=== PATIENT | female | born 1990 | race Caucasian/White ===

== ENCOUNTER 2020-08-22 12:19 | Emergency (ER) | payer MEDICAID ==
[~2020-08-22] VITALS: Ht 175.3 cm; Wt 75.0 kg
[~2020-08-22 12:19] MED LIST: CIPR-259 PO; CLON-527 PO; NABU-134 PO; ONDA8TAB6 PO; PHEN-716 PO
[2020-08-22 16:18] LABS: BASOPHILS # (AUTO) 0.1 X10'3 (0-0.2); BASOPHILS % (AUTO) 1.3 % (0-1); EOSINOPHILS # (AUTO) 0.2 X10'3 (0-0.9); EOSINOPHILS % (AUTO) 2.7 % (0-6); HEMATOCRIT 39.3 % (35.0-45.0); HEMOGLOBIN 13.1 g/dl (12.0-16.0); LYMPHOCYTES # (AUTO) 3.7 X10'3 (1.1-4.8); LYMPHOCYTES % (AUTO) 49.3 % (21-51); MEAN CORPUSCULAR HEMOGLOBIN 29.4 PG (27.0-31.0); MEAN CORPUSCULAR HGB CONC 33.3 g/dL (33.0-36.5); MEAN CORPUSCULAR VOLUME 88.3 FL (78-98); MEAN PLATELET VOLUME 6.3 FL (7.4-10.4); MONOCYTES # (AUTO) 0.5 X10'3 (0-0.9); NEUTROPHILS # (AUTO) 3.1 X10'3 (1.8-7.7); NEUTROPHILS % (AUTO) 40.7 % (42-75); PLATELET COUNT 441 X10'3 (140-440); RED BLOOD COUNT 4.45 X10'6 (4.20-5.60); RED CELL DISTRIBUTION WIDTH 15.1 % (11.5-14.5); WHITE BLOOD COUNT 7.6 X10'3 (4.5-11.0)
[2020-08-22 16:27] LABS: PARTIAL THROMBOPLASTIN TIME 26 SECONDS (22-32)
[2020-08-22 16:34] LABS: ALANINE AMINOTRANSFERASE 44 U/L (12-78); ALBUMIN 3.6 G/DL (3.4-5.0); ALBUMIN/GLOBULIN RATIO 0.8 (1.1-1.5); ALKALINE PHOSPHATASE 82 IU/L (46-116); ANION GAP 6 (8-16); ASPARTATE AMINO TRANSFERASE 27 U/L (10-37); BILIRUBIN,TOTAL 0.1 MG/DL (0.1-1.0); BLOOD UREA NITROGEN 13 MG/DL (7-18); BUN/CREATININE RATIO 17.6 (6.6-38.0); CALCIUM 8.8 MG/DL (8.5-10.1); CHLORIDE 103 MMOL/L (99-107); CREATININE 0.74 MG/DL (0.40-0.90); GLUCOSE 98 MG/DL (70-104); POTASSIUM 4.3 MMOL/L (3.5-5.1); SODIUM 137 MMOL/L (135-145); TOTAL CARBON DIOXIDE 27.6 MMOL/L (24-32); TOTAL PROTEIN 7.9 G/DL (6.4-8.2); eGFR > 90 ML/MIN
[2020-08-22 16:40] LABS: MAGNESIUM 2.2 MG/DL (1.5-2.4)
[2020-08-22 16:50] VITALS: BP 108/68
== END 2020-08-22 17:18 | disposition home or self-care (01) ==
LOC: ER 12:19
DX: R60.0 Localized edema (principal); R41.82 Altered mental status, unspecified; F10.10 Alcohol abuse, uncomplicated; J45.909 Unspecified asthma, uncomplicated; Z86.14 Personal history of Methicillin resistant Staphylococcus aureus infection; Z59.0 Homelessness; Z88.2 Allergy status to sulfonamides; Z88.8 Allergy status to other drugs, medicaments and biological substances; Z79.2 Long term (current) use of antibiotics; Z79.899 Other long term (current) drug therapy
CPT/HCPCS: 36415; 71045; 80053; 83735; 83880; 84484; 85025; 85610; 85730; 93005; 99285

== ENCOUNTER 2020-09-12 20:06 | Emergency (ER) | payer MEDICAID ==
[~2020-09-12] VITALS: Ht 175.3 cm; Wt 75.0 kg
[2020-09-12] MEDS ORDERED: normal saline 1000ml 1,000 ML IV ONE (21:20)
[2020-09-12 21:39] LABS: BASOPHILS # (AUTO) 0.1 X10'3 (0-0.2); BASOPHILS % (AUTO) 1.1 % (0-1); EOSINOPHILS # (AUTO) 0.1 X10'3 (0-0.9); MEAN PLATELET VOLUME 6.4 FL (7.4-10.4); RED BLOOD COUNT 4.75 X10'6 (4.20-5.60)
[2020-09-12 21:40] LABS: EOSINOPHILS % (AUTO) 1.1 % (0-6); HEMATOCRIT 40.4 % (35.0-45.0); HEMOGLOBIN 13.9 g/dl (12.0-16.0); LYMPHOCYTES # (AUTO) 5.8 X10'3 (1.1-4.8); LYMPHOCYTES % (AUTO) 58.8 % (21-51); MEAN CORPUSCULAR HEMOGLOBIN 29.3 PG (27.0-31.0); MEAN CORPUSCULAR HGB CONC 34.5 g/dL (33.0-36.5); MEAN CORPUSCULAR VOLUME 85.1 FL (78-98); MONOCYTES # (AUTO) 0.5 X10'3 (0-0.9); MONOCYTES % (AUTO) 5.2 % (2-12); NEUTROPHILS # (AUTO) 3.3 X10'3 (1.8-7.7); NEUTROPHILS % (AUTO) 33.8 % (42-75); PLATELET COUNT 375 X10'3 (140-440); RED CELL DISTRIBUTION WIDTH 14.5 % (11.5-14.5); WHITE BLOOD COUNT 9.8 X10'3 (4.5-11.0)
[2020-09-12 21:47] LABS: URINE HCG NEGATIVE (NEG)
[2020-09-12 21:50] LABS: D-DIMER 0.67 MG/L FEU (0-0.50)
[2020-09-12 21:53] LABS: ALANINE AMINOTRANSFERASE 42 U/L (12-78); ALBUMIN 4.1 G/DL (3.4-5.0); ALKALINE PHOSPHATASE 74 IU/L (46-116); ANION GAP 12 (8-16); ASPARTATE AMINO TRANSFERASE 39 U/L (10-37); BILIRUBIN,TOTAL 0.3 MG/DL (0.1-1.0); BLOOD UREA NITROGEN 9 MG/DL (7-18); BUN/CREATININE RATIO 12.2 (6.6-38.0); CALCIUM 8.9 MG/DL (8.5-10.1); CHLORIDE 103 MMOL/L (99-107); CREATININE 0.74 MG/DL (0.40-0.90); GLUCOSE 133 MG/DL (70-104); POTASSIUM 3.4 MMOL/L (3.5-5.1); SODIUM 141 MMOL/L (135-145); TOTAL CARBON DIOXIDE 26.5 MMOL/L (24-32); TOTAL PROTEIN 8.4 G/DL (6.4-8.2); eGFR > 90 ML/MIN
[2020-09-12 21:59] LABS: URINE AMPHETAMINE SCREEN NEGATIVE (Neg); URINE BARBITUATE SCREEN NEGATIVE (Neg); URINE BENZODIAZEPINES SCREEN NEGATIVE (Neg); URINE CANNABINOID SCREEN NEGATIVE (Neg); URINE COCAINE SCREEN NEGATIVE (Neg); URINE METHADONE SCREEN NEGATIVE (Neg); URINE OPIATE SCREEN NEGATIVE (Neg); URINE PHENCYCLIDINE SCREEN NEGATIVE (Neg)
[2020-09-12] MEDS ORDERED: iohexol 350MG/ML 100ml bottle IV ONE (22:06)
[2020-09-12] MEDS ORDERED: potassium Cl 20 mEq SR tablet PO ONE (22:20)
[2020-09-12 23:05] VITALS: BP 117/59
== END 2020-09-12 23:06 | disposition home or self-care (01) ==
LOC: ER 20:06
DX: R05 Cough (principal); R07.89 Other chest pain; R09.89 Other specified symptoms and signs involving the circulatory and respiratory systems; Z20.822 Contact with and (suspected) exposure to COVID-19; J45.909 Unspecified asthma, uncomplicated; Z86.14 Personal history of Methicillin resistant Staphylococcus aureus infection; Z59.0 Homelessness; Z88.2 Allergy status to sulfonamides; Z88.8 Allergy status to other drugs, medicaments and biological substances; Z79.2 Long term (current) use of antibiotics; Z79.899 Other long term (current) drug therapy
CPT/HCPCS: 36415; 71045; 71275; 80053; 80305; 81025; 85025; 85379; 87635; 93005; 96360; 99285; J7030; Q9967

== ENCOUNTER 2021-10-09 16:06 | Emergency (ER) | payer MEDICAID ==
[~2021-10-09] VITALS: Ht 177.8 cm; Wt 100.0 kg
[~2021-10-09 16:06] MED LIST changes: -NABU-134 PO; +NABU-139 PO
[2021-10-09 16:11] VITALS: BP 113/58
[2021-10-09] MEDS ORDERED: TETanus/Pertussis (Acell)/Diphther VAC/PF (Tdap-Adult) 0.5ml syringe IMVAC ONE (16:20)
== END 2021-10-09 16:40 ==
LOC: ER 16:06
DX: S81.811A Laceration without foreign body, right lower leg, initial encounter (principal); J45.909 Unspecified asthma, uncomplicated; Z86.14 Personal history of Methicillin resistant Staphylococcus aureus infection; Z59.00 Homelessness unspecified; Z88.2 Allergy status to sulfonamides; Z88.8 Allergy status to other drugs, medicaments and biological substances; Z79.2 Long term (current) use of antibiotics; Z79.899 Other long term (current) drug therapy; Z20.3 Contact with and (suspected) exposure to rabies; W45.8XXA Other foreign body or object entering through skin, initial encounter; Y93.89 Activity, other specified; Y92.89 Other specified places as the place of occurrence of the external cause; Y99.8 Other external cause status
CPT/HCPCS: 12002; 90471; 90715; 99283

== ENCOUNTER 2021-10-10 17:29 | Emergency (ER) | payer MEDICAID ==
[~2021-10-10] VITALS: Ht 175.3 cm; Wt 90.9 kg
[2021-10-10] MEDS ORDERED: naloxone 2mg/2ml inj IV STA (17:34)
[2021-10-10] MEDS ORDERED: normal saline 1000ML IV soln IVB ONE ×3 (17:40→19:20)
[2021-10-10 18:24] LABS: BASOPHILS # (AUTO) 0.1 X10'3 (0-0.2); BASOPHILS % (AUTO) 0.9 % (0-1); EOSINOPHILS % (AUTO) 0.4 % (0-6); HEMATOCRIT 35.2 % (35.0-45.0); LYMPHOCYTES # (AUTO) 3.5 X10'3 (1.1-4.8); LYMPHOCYTES % (AUTO) 42.6 % (21-51); MEAN CORPUSCULAR HEMOGLOBIN 28.5 PG (27.0-31.0); MEAN CORPUSCULAR HGB CONC 33.9 g/dL (33.0-36.5); MEAN CORPUSCULAR VOLUME 83.8 FL (78-98); MEAN PLATELET VOLUME 6.2 FL (7.4-10.4); MONOCYTES # (AUTO) 0.5 X10'3 (0-0.9); MONOCYTES % (AUTO) 5.9 % (2-12); NEUTROPHILS # (AUTO) 4.1 X10'3 (1.8-7.7); NEUTROPHILS % (AUTO) 50.2 % (42-75); PLATELET COUNT 453 X10'3 (140-440); RED CELL DISTRIBUTION WIDTH 14.3 % (11.5-14.5); WHITE BLOOD COUNT 8.3 X10'3 (4.5-11.0)
[2021-10-10 18:33] LABS: ALANINE AMINOTRANSFERASE 47 U/L (12-78); ALBUMIN 3.3 G/DL (3.4-5.0); ALBUMIN/GLOBULIN RATIO 0.8 (1.1-1.5); ALKALINE PHOSPHATASE 109 IU/L (46-116); ANION GAP 14 (8-16); ASPARTATE AMINO TRANSFERASE 54 U/L (10-37); BILIRUBIN,TOTAL 0.3 MG/DL (0.1-1.0); BLOOD UREA NITROGEN 9 MG/DL (7-18); BUN/CREATININE RATIO 10.8 (6.6-38.0); CALCIUM 8.3 MG/DL (8.5-10.1); CHLORIDE 106 MMOL/L (99-107); CREATININE 0.83 MG/DL (0.40-0.90); ETHANOL 0.067 GM/DL (0.0-0.010); GLUCOSE 93 MG/DL (70-104); POTASSIUM 3.7 MMOL/L (3.5-5.1); SODIUM 147 MMOL/L (135-145); TOTAL CARBON DIOXIDE 26.9 MMOL/L (24-32); TOTAL PROTEIN 7.4 G/DL (6.4-8.2); eGFR 79 ML/MIN
[2021-10-10] MEDS ORDERED: diphenhydrAMINE 50 mg/ml inj IV ONE (18:45)
--- NOTE | 2021-10-10 20:36 | NUR ---
PT IN BED RESTING COMFY, SUPINE. cHEST RISING AND FALLINF EYES CLOSED. PT ON DOOR CAPTAIN. NO ACUTE DISTRESS, WILL MONITOR THROUGHOUT.
[2021-10-10 21:55] LABS: URINE AMPHETAMINE SCREEN POSITIVE (Neg); URINE BARBITUATE SCREEN NEGATIVE (Neg); URINE BENZODIAZEPINES SCREEN NEGATIVE (Neg); URINE CANNABINOID SCREEN NEGATIVE (Neg); URINE COCAINE SCREEN NEGATIVE (Neg); URINE METHADONE SCREEN NEGATIVE (Neg); URINE OPIATE SCREEN NEGATIVE (Neg); URINE PHENCYCLIDINE SCREEN NEGATIVE (Neg)
--- NOTE | 2021-10-10 21:55 | NUR ---
pt arousable to voice. pt able to stand pivit and get onto bedside commode with little assist. pt unable to recall events leading to her coming to er.
[2021-10-10 21:58] LABS: CLARITY,URINE CLEAR (Clear); COLOR,URINE YELLOW (Yellow); GLUCOSE, URINE NEGATIVE (Neg); KETONES,URINE NEGATIVE (Neg); LEUKOCYTE ESTERASE ,URINE NEGATIVE (Neg); NITRITES, URINE NEGATIVE (Neg); OCCULT BLOOD,URINE NEGATIVE (Neg); PROTEIN,URINE NEGATIVE (Neg); UA COLLECTION TYPE VOIDED; UROBILINOGEN,URINE 0.2 E.U/dL (0.2-1.0)
--- NOTE | 2021-10-11 03:22 | NUR ---
pt observed sleeping, vss
--- NOTE | 2021-10-11 04:22 | NUR ---
pt [facility]; meal provided; a/o, vss, d/c instructions given, voiced understanding.
[2021-10-11 04:24] VITALS: BP 126/82
== END 2021-10-11 04:33 | disposition home or self-care (01) ==
LOC: ER 17:30
DX: T45.0X1A Poisoning by antiallergic and antiemetic drugs, accidental (unintentional), initial encounter (principal); T44.5X1A Poisoning by predominantly beta-adrenoreceptor agonists, accidental (unintentional), initial encounter; T36.0X1A Poisoning by penicillins, accidental (unintentional), initial encounter; R41.82 Altered mental status, unspecified; R25.3 Fasciculation; J45.909 Unspecified asthma, uncomplicated; S81.811D Laceration without foreign body, right lower leg, subsequent encounter; Z86.14 Personal history of Methicillin resistant Staphylococcus aureus infection; Z59.00 Homelessness unspecified; Z88.2 Allergy status to sulfonamides; Z88.8 Allergy status to other drugs, medicaments and biological substances; Z79.2 Long term (current) use of antibiotics; X58.XXXD Exposure to other specified factors, subsequent encounter; Y92.89 Other specified places as the place of occurrence of the external cause
CPT/HCPCS: 36415; 71045; 80053; 80305; 80320; 81003; 82140; 85025; 96361; 96374; 96375; 99285; J1200; J2310; J7030

== ENCOUNTER 2021-11-01 12:34 | Inpatient (IN) | payer MEDICAID ==
[~2021-11-01] VITALS: Ht 172.7 cm; Wt 100.0 kg
[2021-11-01] MEDS ORDERED: levetiracetam inj 1,000 MG in normal saline 100ml IV soln 90 ML IV STA (12:37)
[2021-11-01] MEDS ORDERED: LORazepam 2 mg/ml vial IV ONE (12:40)
[2021-11-01] MEDS ORDERED: normal saline 1000ML IV soln IVB ONE (12:40)
[2021-11-01] MEDS ORDERED: magnesium 2GM in 50ml NS 50 ML IV ONE (12:40)
[2021-11-01] MEDS ORDERED: famotidine/PF 10 mg/ml inj IV ONE (12:40)
[2021-11-01] MEDS ORDERED: ondansetron/PF 4mg/2ml inj IV ONE (12:40)
[2021-11-01] MEDS ORDERED: levetiracetam-NS 1000mg/100ml 100 ML IV STA (12:54)
[2021-11-01 13:20] LABS: BASOPHILS % (AUTO) 0.6 % (0-1); EOSINOPHILS # (AUTO) 0.1 X10'3 (0-0.9); EOSINOPHILS % (AUTO) 0.8 % (0-6); HEMATOCRIT 36.6 % (35.0-45.0); HEMOGLOBIN 11.8 g/dl (12.0-16.0); LYMPHOCYTES % (AUTO) 13.8 % (21-51); MEAN CORPUSCULAR HEMOGLOBIN 28.9 PG (27.0-31.0); MEAN CORPUSCULAR HGB CONC 32.3 g/dL (33.0-36.5); MEAN CORPUSCULAR VOLUME 89.5 FL (78-98); MEAN PLATELET VOLUME 6.3 FL (7.4-10.4); MONOCYTES # (AUTO) 0.3 X10'3 (0-0.9); MONOCYTES % (AUTO) 4.9 % (2-12); NEUTROPHILS # (AUTO) 5.6 X10'3 (1.8-7.7); NEUTROPHILS % (AUTO) 79.9 % (42-75); PLATELET COUNT 391 X10'3 (140-440); RED BLOOD COUNT 4.09 X10'6 (4.20-5.60); RED CELL DISTRIBUTION WIDTH 17.8 % (11.5-14.5)
[2021-11-01 13:33] LABS: AMMONIA < 10 UMOL/L (11-32)
[2021-11-01 13:34] LABS: ALANINE AMINOTRANSFERASE 57 U/L (12-78); ALBUMIN 3.1 G/DL (3.4-5.0); ALBUMIN/GLOBULIN RATIO 0.8 (1.1-1.5); ALKALINE PHOSPHATASE 85 IU/L (46-116); ANION GAP 14 (8-16); ASPARTATE AMINO TRANSFERASE 43 U/L (10-37); BILIRUBIN,TOTAL 0.1 MG/DL (0.1-1.0); BLOOD UREA NITROGEN 8 MG/DL (7-18); BUN/CREATININE RATIO 8.7 (6.6-38.0); CALCIUM 8.2 MG/DL (8.5-10.1); CHLORIDE 104 MMOL/L (99-107); CREATININE 0.92 MG/DL (0.40-0.90); ETHANOL 0.019 GM/DL (0.0-0.010); GLUCOSE 73 MG/DL (70-104); POTASSIUM 3.9 MMOL/L (3.5-5.1); SODIUM 139 MMOL/L (135-145); TOTAL CARBON DIOXIDE 20.6 MMOL/L (24-32); TOTAL PROTEIN 7.2 G/DL (6.4-8.2); eGFR 70 ML/MIN
[2021-11-01] MEDS ORDERED: acetaminophen 325mg tablet PO ONE (13:35)
[2021-11-01] MEDS ORDERED: thiamine 100mg/ml 2ml inj. IV ONE (13:40)
[2021-11-01] MEDS ORDERED: folic acid 1mg/0.2ml inj IV ONE (13:40)
[2021-11-01 13:47] LABS: LACTIC SEPSIS 4.5 MMOL/L (0.4-2.0)
[2021-11-01 14:04] LABS: CLARITY,URINE CLEAR (Clear); COLOR,URINE YELLOW (Yellow); GLUCOSE, URINE NEGATIVE (Neg); KETONES,URINE 40 mg/dl (Neg); LEUKOCYTE ESTERASE ,URINE NEGATIVE (Neg); NITRITES, URINE NEGATIVE (Neg); OCCULT BLOOD,URINE NEGATIVE (Neg); PROTEIN,URINE NEGATIVE (Neg); UROBILINOGEN,URINE 0.2 E.U/dL (0.2-1.0)
[2021-11-01 14:06] LABS: UA COLLECTION TYPE STRAIGHT CATH
--- NOTE | 2021-11-01 14:14 | NUR ---
SC DONE FOR URINE
--- NOTE | 2021-11-01 14:14 | NUR ---
PT BECOMING MORE ALERT BUT STILL NOT RESPONDING TO QUESTIONS SHE WILL WAKE OPEN HER EYES LOOK AROUND AND FIGHT AGINAST CARE BUT THEN FALLS BACK ASLEEP
[2021-11-01 14:16] LABS: CREATINE KINASE 202 U/L (26-192)
[2021-11-01 14:17] LABS: URINE AMPHETAMINE SCREEN POSITIVE (Neg); URINE BARBITUATE SCREEN NEGATIVE (Neg); URINE BENZODIAZEPINES SCREEN NEGATIVE (Neg); URINE CANNABINOID SCREEN NEGATIVE (Neg); URINE COCAINE SCREEN NEGATIVE (Neg); URINE METHADONE SCREEN NEGATIVE (Neg); URINE OPIATE SCREEN NEGATIVE (Neg); URINE PHENCYCLIDINE SCREEN NEGATIVE (Neg)
[2021-11-01] MEDS ORDERED: haloperidol 5mg tablet PO PRN (14:20)
[2021-11-01] MEDS ORDERED: magnesium 4gm in 100ml NS 100 ML IV PRN (14:20)
[2021-11-01] MEDS ORDERED: magnesium 2GM in 50ml NS 50 ML IV PRN (14:20)
[2021-11-01] MEDS ORDERED: magnesium Cl slow-release 64mg tablet PO PRN (14:20)
[2021-11-01] MEDS: normal saline 1000ml 1,000 ML IV SCH (14:20)
[2021-11-01] MEDS ORDERED: bisacodyl 10mg suppository rectal RC PRN (14:20)
[2021-11-01] MEDS ORDERED: potassium CL 10mEq/100ml bag 100 ML IV PRN (14:20)
[2021-11-01] MEDS ORDERED: potassium Cl 20 mEq SR tablet PO PRN ×2 (14:20)
[2021-11-01] MEDS ORDERED: mag hydrox/Alum hydrox/simeth 30ml oral suspension PO PRN (14:20)
[2021-11-01] MEDS ORDERED: magnesium hydroxide 30ml (MOM) UD suspension PO PRN (14:20)
[2021-11-01] MEDS ORDERED: LORazepam 2 mg/ml vial IV PRN ×2 (14:20)
[2021-11-01] MEDS ORDERED: naloxone 0.4 mg/ml inj IV PRN (14:20)
[2021-11-01] MEDS ORDERED: ondansetron 4mg rapidly disintigrating tab PO PRN (14:20)
[2021-11-01] MEDS ORDERED: ondansetron/PF 4mg/2ml inj IV PRN (14:20)
[2021-11-01] MEDS ORDERED: acetaminophen 325mg tablet PO PRN (14:20)
[2021-11-01] MEDS ORDERED: metoclopramide 5 mg/ml inj IV PRN (14:20)
[2021-11-01] MEDS ORDERED: LORazepam 1 MG tablet PO PRN (14:20)
[2021-11-01] MEDS ORDERED: acetaminophen 650mg rectal suppository RC PRN (14:20)
[2021-11-01] MEDS ORDERED: haloperidol lactate 5mg/ml inj IM PRN (14:20)
[2021-11-01 14:39] LABS: URINE HCG NEGATIVE (NEG)
[2021-11-01 15:03] LABS: MAGNESIUM 1.9 MG/DL (1.5-2.4)
--- NOTE | 2021-11-01 15:11 | NUR ---
woke pt up and was able to tell me her name but then fell back to sleep
[2021-11-01] MEDS ORDERED: CLON-369 PO (16:15)
[2021-11-01] MEDS ORDERED: CHOL500050 PO (16:15)
[2021-11-01] MEDS ORDERED: GABA600T13 PO (16:15)
[2021-11-01] MEDS ORDERED: ESCI20TA39 PO (16:15)
[2021-11-01] MEDS ORDERED: HYDR50TA65 PO (16:15)
[2021-11-01] MEDS ORDERED: hydrOXYzine 25 MG tablet PO PRN (16:25)
[2021-11-01] MEDS: gabapentin 300mg capsule PO SCH ×2 (17:00→21:47)
--- NOTE | 2021-11-01 17:21 | NUR ---
pt still sleepy but more alert was she is still not sure what happened but thinks she fell and knows she is in the hostpital after answering questions she laid back and went back to sleep
[2021-11-01] MEDS: K and/or MAG REPLACEMENT MC SCH (20:00)
[2021-11-01] MEDS: levetiracetam-NS 1000mg/100ml 100 ML IV SCH (20:16)
--- NOTE | 2021-11-01 21:20 | NUR ---
Pt arrived from ED at this time. Pt is lethargic and responds to verbal commands. Has bilateral redness on both arms, pt states occurred from bad meth reaction. Keppra is being infused at this time. Seizures precaution is in place. Vitals are stable and within normal range with no temperature. Will continue to monitor patient.
[2021-11-01] MEDS: acetaminophen 325mg tablet PO PRN (21:47)
[2021-11-01] MEDS: docusate sod 100mg capsule PO SCH (21:47)
[2021-11-01 22:00] VITALS: BP 121/66
[2021-11-01] MEDS: thiamine 100mg/ml 2ml inj. IV SCH (23:04)
--- NOTE | 2021-11-02 | NUR ---
Upon arrival pts BS was 60, gave pt three cups of orange juice and jello. Rechecked after 15 mins BS increased to 122. Will continue to monitor.
[2021-11-02] MEDS: normal saline 1000ml 1,000 ML IV SCH ×3 (00:22→21:59)
[2021-11-02 02:00] VITALS: BP 102/44
[2021-11-02] MEDS: acetaminophen 325mg tablet PO PRN (05:44)
[2021-11-02 06:00] VITALS: BP 90/48
[2021-11-02] MEDS: multivitamins, therapeutics tablet PO SCH (08:00)
[2021-11-02] MEDS: K and/or MAG REPLACEMENT MC SCH ×2 (08:00→20:00)
[2021-11-02] MEDS: ESCITALOPRAM OXALATE 5 MG TABLET PO SCH (08:00)
[2021-11-02] MEDS: docusate sod 100mg capsule PO SCH ×2 (08:00→21:24)
[2021-11-02] MEDS: gabapentin 300mg capsule PO SCH ×4 (08:00→21:25)
[2021-11-02 08:36] LABS: ALANINE AMINOTRANSFERASE 41 U/L (12-78); ALBUMIN 2.5 G/DL (3.4-5.0); ALBUMIN/GLOBULIN RATIO 0.7 (1.1-1.5); ALKALINE PHOSPHATASE 71 IU/L (46-116); ANION GAP 10 (8-16); ASPARTATE AMINO TRANSFERASE 36 U/L (10-37); BILIRUBIN,TOTAL 0.2 MG/DL (0.1-1.0); BLOOD UREA NITROGEN 8 MG/DL (7-18); BUN/CREATININE RATIO 12.1 (6.6-38.0); CALCIUM 7.9 MG/DL (8.5-10.1); CHLORIDE 104 MMOL/L (99-107); CREATININE 0.66 MG/DL (0.40-0.90); GLUCOSE 78 MG/DL (70-104); POTASSIUM 3.7 MMOL/L (3.5-5.1); SODIUM 138 MMOL/L (135-145); TOTAL CARBON DIOXIDE 23.8 MMOL/L (24-32); TOTAL PROTEIN 6.1 G/DL (6.4-8.2); eGFR > 90 ML/MIN
[2021-11-02] MEDS: levetiracetam-NS 1000mg/100ml 100 ML IV SCH ×2 (08:40→21:27)
[2021-11-02] MEDS: thiamine 100mg/ml 2ml inj. IV SCH ×3 (08:40→21:27)
[2021-11-02] MEDS: folic acid 1mg/0.2ml inj IV SCH (08:41)
[2021-11-02 08:48] LABS: MAGNESIUM 2.1 MG/DL (1.5-2.4)
[2021-11-02 08:49] LABS: BASOPHILS % (AUTO) 0.8 % (0-1); EOSINOPHILS # (AUTO) 0.1 X10'3 (0-0.9); EOSINOPHILS % (AUTO) 2.4 % (0-6); HEMATOCRIT 34.1 % (35.0-45.0); HEMOGLOBIN 11.2 g/dl (12.0-16.0); LYMPHOCYTES # (AUTO) 2.7 X10'3 (1.1-4.8); LYMPHOCYTES % (AUTO) 42.6 % (21-51); MEAN CORPUSCULAR HEMOGLOBIN 29.9 PG (27.0-31.0); MEAN CORPUSCULAR HGB CONC 32.9 g/dL (33.0-36.5); MEAN CORPUSCULAR VOLUME 90.7 FL (78-98); MEAN PLATELET VOLUME 6.9 FL (7.4-10.4); MONOCYTES # (AUTO) 0.6 X10'3 (0-0.9); MONOCYTES % (AUTO) 9.1 % (2-12); NEUTROPHILS # (AUTO) 2.8 X10'3 (1.8-7.7); NEUTROPHILS % (AUTO) 45.1 % (42-75); PLATELET COUNT 372 X10'3 (140-440); RED BLOOD COUNT 3.76 X10'6 (4.20-5.60); RED CELL DISTRIBUTION WIDTH 17.9 % (11.5-14.5); WHITE BLOOD COUNT 6.3 X10'3 (4.5-11.0)
--- NOTE | 2021-11-02 10:12 | NUR ---
Paged EEG PCU Patrice MCKEON ext [phone] RE: Lucia Tejeda. Patient needs EEG please, she had seizure upon arrival to ER
--- NOTE | 2021-11-02 10:12 | NUR ---
Patient has been lethargic today, will wake up when shaking repeatedly and in pain. When she awake, she will talk to me then fall asleep. She has very short attention span. Last dose of Ativan was last night. MRI of the head and EEG pending at this time. MRI screening form was faxed to MRI department, I told Juno from MRI patient has earrings and a ring on her finger. Per Juno, we need the earring taken out and that we can leave the ring on as the MRI is for the head. Tamara, the NC MACHINIST removed the earrings as per my instruction. Dr. Cm was notified that patient has been lethargic today. supply technician paged also.
[2021-11-02 11:00] VITALS: BP 106/65
[2021-11-02] MEDS: clonazePAM 0.5mg tablet PO PRN ×2 (13:57→21:31)
[2021-11-02 15:00] VITALS: BP 93/49
[2021-11-02 18:30] VITALS: BP 124/76
--- NOTE | 2021-11-02 18:45 | NUR ---
Patient in room U 3013. I have received report from MIKE Ibrahim and had the opportunity to ask questions and assume patient care. Seizure pads on bed. No complaints. Addendum: 11/02/21 at 1846 by Manuel Raphael RN Amended: Links added.
[2021-11-02] MEDS: buprenorphine/naloxone 8MG-2MG SUBlingual film SL SCH (21:24)
[2021-11-02 22:30] VITALS: BP 128/82
[2021-11-03] VITALS (7 sets, daily range): BP systolic 109–124; BP diastolic 51–77
--- NOTE | 2021-11-03 00:01 | NUR ---
resting with eyes closed rr wnl. no s&s of withdrawls or seizures. Addendum: 11/03/21 at 0002 by Manuel Raphael RN Amended: Links added.
--- NOTE | 2021-11-03 03:00 | NUR ---
AMB TO BATHROOM VOIDED MISSED HAT. PT DECLINES BATH OR SHOWER RIGHT NOW, SHOWER SET UP OFR PT WHEN READY. PT FALLS ASLEEP WHEN BACK TO BED, REQ JELLO AND SNACK. NO S7S WITHDRAWL AT THIS TIME. Addendum: 11/03/21 at 0358 by Manuel Raphael RN Amended: Links added.
[2021-11-03] MEDS: normal saline 1000ml 1,000 ML IV SCH ×2 (05:18→08:57)
--- NOTE | 2021-11-03 06:33 | NUR ---
Problems reprioritized. Patient report given, questions answered & plan of care reviewed with MIKE LIU. Addendum: 11/03/21 at 0634 by Manuel Raphael RN Amended: Links added.
--- NOTE | 2021-11-03 06:55 | NUR ---
Patient in room PCU 3013. I have received report from Idalia MCKEON and had the opportunity to ask questions and assume patient care.
[2021-11-03 07:26] LABS: BASOPHILS % (AUTO) 0.2 % (0-1); EOSINOPHILS # (AUTO) 0.2 X10'3 (0-0.9); EOSINOPHILS % (AUTO) 3.1 % (0-6); HEMATOCRIT 35.4 % (35.0-45.0); HEMOGLOBIN 11.6 g/dl (12.0-16.0); LYMPHOCYTES # (AUTO) 2.8 X10'3 (1.1-4.8); LYMPHOCYTES % (AUTO) 52.2 % (21-51); MEAN CORPUSCULAR HEMOGLOBIN 29.4 PG (27.0-31.0); MEAN CORPUSCULAR HGB CONC 32.6 g/dL (33.0-36.5); MEAN CORPUSCULAR VOLUME 90.1 FL (78-98); MEAN PLATELET VOLUME 7.1 FL (7.4-10.4); MONOCYTES # (AUTO) 0.4 X10'3 (0-0.9); MONOCYTES % (AUTO) 7.8 % (2-12); NEUTROPHILS % (AUTO) 36.7 % (42-75); PLATELET COUNT 358 X10'3 (140-440); RED BLOOD COUNT 3.93 X10'6 (4.20-5.60); RED CELL DISTRIBUTION WIDTH 17.5 % (11.5-14.5); WHITE BLOOD COUNT 5.4 X10'3 (4.5-11.0)
[2021-11-03] MEDS: docusate sod 100mg capsule PO SCH ×2 (07:41→20:53)
[2021-11-03] MEDS: gabapentin 300mg capsule PO SCH ×4 (07:41→20:53)
[2021-11-03] MEDS: multivitamins, therapeutics tablet PO SCH (07:41)
[2021-11-03 07:42] LABS: ALANINE AMINOTRANSFERASE 36 U/L (12-78); ALBUMIN 2.5 G/DL (3.4-5.0); ALBUMIN/GLOBULIN RATIO 0.7 (1.1-1.5); ALKALINE PHOSPHATASE 73 IU/L (46-116); ANION GAP 4 (8-16); ASPARTATE AMINO TRANSFERASE 25 U/L (10-37); BILIRUBIN,TOTAL 0.1 MG/DL (0.1-1.0); BLOOD UREA NITROGEN 7 MG/DL (7-18); BUN/CREATININE RATIO 10.1 (6.6-38.0); CHLORIDE 110 MMOL/L (99-107); CREATININE 0.69 MG/DL (0.40-0.90); GLUCOSE 103 MG/DL (70-104); MAGNESIUM 1.9 MG/DL (1.5-2.4); SODIUM 139 MMOL/L (135-145); TOTAL CARBON DIOXIDE 24.9 MMOL/L (24-32); TOTAL PROTEIN 6.3 G/DL (6.4-8.2); eGFR > 90 ML/MIN
[2021-11-03] MEDS: ESCITALOPRAM OXALATE 5 MG TABLET PO SCH (07:43)
[2021-11-03] MEDS: thiamine 100mg/ml 2ml inj. IV SCH ×3 (07:43→20:53)
[2021-11-03] MEDS: folic acid 1mg/0.2ml inj IV SCH (07:44)
[2021-11-03] MEDS: levetiracetam-NS 1000mg/100ml 100 ML IV SCH ×2 (07:44→20:53)
[2021-11-03] MEDS: buprenorphine/naloxone 8MG-2MG SUBlingual film SL SCH ×3 (07:49→20:53)
[2021-11-03] MEDS: K and/or MAG REPLACEMENT MC SCH ×2 (08:00→20:00)
[2021-11-03] MEDS: clonazePAM 0.5mg tablet PO PRN ×2 (08:57→21:06)
[2021-11-03] MEDS ORDERED: KEP500T PO (09:57)
[2021-11-03] MEDS ORDERED: BUPR1FIL3 SL (09:57)
--- NOTE | 2021-11-03 12:54 | NUR ---
Met with patient in regards to substance use and to see if patient wanted resources for treatment options. Patient would like to go to an inpatient rehab. Patient and I are going to call [facility] and get that process started. Also gave patient my card to call me with any questions.
[2021-11-03 13:17] LABS: ANISOCYTOSIS 1+; PLATELET ESTIMATE NORMAL; TOTAL CELLS COUNTED 100
--- NOTE | 2021-11-03 14:01 | NUR ---
PAGER ID: [phone] MESSAGE: Gerardo [facility] [phone] Re: Riya Tejeda Substance abuse counseling suggested staying till Tomorrow so patient can go to [facility] tomorrow so she stays clean for intake?
--- NOTE | 2021-11-03 18:35 | NUR ---
Problems reprioritized. Patient report given, questions answered & plan of care reviewed with Iwona MCKEON.
--- NOTE | 2021-11-03 18:35 | NUR ---
Patient in room PCU 3013. I have received report from Gerardo MCKEON and had the opportunity to ask questions and assume patient care.
[2021-11-04] VITALS: BP 112/77
[2021-11-04] MEDS: normal saline 1000ml 1,000 ML IV SCH ×2 (00:07→12:20)
[2021-11-04 02:00] VITALS: BP 103/74
[2021-11-04 06:29] LABS: BASOPHILS % (AUTO) 0.8 % (0-1); EOSINOPHILS # (AUTO) 0.1 X10'3 (0-0.9); HEMATOCRIT 34.2 % (35.0-45.0); HEMOGLOBIN 11.3 g/dl (12.0-16.0); LYMPHOCYTES # (AUTO) 2.8 X10'3 (1.1-4.8); LYMPHOCYTES % (AUTO) 57.1 % (21-51); MEAN CORPUSCULAR HGB CONC 33.1 g/dL (33.0-36.5); MEAN CORPUSCULAR VOLUME 90.8 FL (78-98); MEAN PLATELET VOLUME 7.1 FL (7.4-10.4); MONOCYTES # (AUTO) 0.4 X10'3 (0-0.9); MONOCYTES % (AUTO) 7.8 % (2-12); NEUTROPHILS # (AUTO) 1.6 X10'3 (1.8-7.7); NEUTROPHILS % (AUTO) 31.3 % (42-75); PLATELET COUNT 388 X10'3 (140-440); RED BLOOD COUNT 3.77 X10'6 (4.20-5.60); RED CELL DISTRIBUTION WIDTH 17.7 % (11.5-14.5)
[2021-11-04 06:34] LABS: ALANINE AMINOTRANSFERASE 37 U/L (12-78); ALBUMIN 2.5 G/DL (3.4-5.0); ALBUMIN/GLOBULIN RATIO 0.7 (1.1-1.5); ALKALINE PHOSPHATASE 66 IU/L (46-116); ANION GAP 6 (8-16); ASPARTATE AMINO TRANSFERASE 30 U/L (10-37); BILIRUBIN,TOTAL 0.1 MG/DL (0.1-1.0); BLOOD UREA NITROGEN 7 MG/DL (7-18); BUN/CREATININE RATIO 9.1 (6.6-38.0); CHLORIDE 111 MMOL/L (99-107); CREATININE 0.77 MG/DL (0.40-0.90); GLUCOSE 100 MG/DL (70-104); MAGNESIUM 1.8 MG/DL (1.5-2.4); POTASSIUM 4.4 MMOL/L (3.5-5.1); SODIUM 143 MMOL/L (135-145); TOTAL CARBON DIOXIDE 26.5 MMOL/L (24-32); TOTAL PROTEIN 6.1 G/DL (6.4-8.2); eGFR 86 ML/MIN
--- NOTE | 2021-11-04 06:40 | NUR ---
Problems reprioritized. Patient report given, questions answered & plan of care reviewed with Debbie MCKEON.
[2021-11-04 07:37] LABS: ANISOCYTOSIS 1+; PLATELET ESTIMATE NORMAL; TOTAL CELLS COUNTED 100
[2021-11-04] MEDS: clonazePAM 0.5mg tablet PO PRN (07:40)
[2021-11-04] MEDS: ESCITALOPRAM OXALATE 5 MG TABLET PO SCH (07:41)
[2021-11-04] MEDS: folic acid 1mg/0.2ml inj IV SCH (07:41)
[2021-11-04] MEDS: thiamine 100mg/ml 2ml inj. IV SCH (07:41)
[2021-11-04] MEDS: multivitamins, therapeutics tablet PO SCH (07:41)
[2021-11-04] MEDS: docusate sod 100mg capsule PO SCH (07:41)
[2021-11-04] MEDS: gabapentin 300mg capsule PO SCH (07:41)
[2021-11-04] MEDS: buprenorphine/naloxone 8MG-2MG SUBlingual film SL SCH (07:41)
[2021-11-04] MEDS: levetiracetam-NS 1000mg/100ml 100 ML IV SCH (07:42)
[2021-11-04 07:52] VITALS: BP 129/79
[2021-11-04] MEDS: K and/or MAG REPLACEMENT MC SCH (08:00)
--- NOTE | 2021-11-04 09:55 | NUR ---
Followed up with patient to confirm when she is able to go to [facility] and she is accepted for WednesdayNovember 07. Patient called [facility] and they will pick her up at [facility] Wednesday at 8:00am to drive her there.
[2021-11-04 11:00] VITALS: BP 112/68
--- NOTE | 2021-11-04 11:22 | NUR ---
Attempted to call in patient's discharge prescription for suboxone over at [facility] on [address] Pharmacy was not able to fill prescription and says Dr. Schmidt over on [facility] orders weekly prescription for suboxone for patient and it would be best to have him write patients new prescription. Dr. Bajwa and casework specialist are aware and I am told we are not able to do anything from our standpoint. Patient was given multiple bus passes to get to Dr. Elliott's office if she needs to and also to get to the pharmacy and back to [facility]. She is aware [facility] will not be able to take her until Wednesday.
--- NOTE | 2021-11-04 12:29 | NUR ---
Discharge paperwork reviewed with patient. I informed her that she will need to get suboxone prescription from her doctor, Dr Tello. Both IVs were removed, catheter tips intact. Patient is requesting to stay until she is done eating her lunch. Free from injuries.
[2021-11-06] MEDS ORDERED: thiamine 100mg tablet PO SCH (08:00)
[2021-11-06] MEDS ORDERED: folic acid 1mg tablet PO SCH (08:00)
== END 2021-11-04 13:20 | disposition home or self-care (01) | DRG 53 ==
LOC: ER 12:34 → ED HOLD 14:28 → PCU 3S 20:30
PROVIDERS: ADMIT Family Medicine; ATTEND Family Medicine
PROC: 4A10X4Z Monitoring of Central Nervous Electrical Activity, External Approach (ICD-10-PCS; principal; 2021-11-02)
DX: G40.909 Epilepsy, unspecified, not intractable, without status epilepticus (principal); E87.2 Acidosis; N17.9 Acute kidney failure, unspecified; M62.82 Rhabdomyolysis; F15.10 Other stimulant abuse, uncomplicated; F10.129 Alcohol abuse with intoxication, unspecified; W18.39XA Other fall on same level, initial encounter; F41.0 Panic disorder [episodic paroxysmal anxiety]; H73.891 Other specified disorders of tympanic membrane, right ear; J45.909 Unspecified asthma, uncomplicated; S00.03XA Contusion of scalp, initial encounter; F32.A Depression, unspecified; Z59.00 Homelessness unspecified; Z88.2 Allergy status to sulfonamides; Z88.8 Allergy status to other drugs, medicaments and biological substances; Z79.899 Other long term (current) drug therapy; Y93.89 Activity, other specified; Y92.89 Other specified places as the place of occurrence of the external cause; Y99.8 Other external cause status
CPT/HCPCS: 36415; 70450; 70553; 71045; 80053; 80305; 80320; 81003; 81025; 82140; 82550; 82948; 83605; 83735; 85007; 85025; 87040; 87081; 93005; 95816; 96365; 96368; 96376; 97116; 97161; 97530; 99291; G0378; J1953; J2060; J2405; J3411; J3475; J3490; J7030

== ENCOUNTER 2021-12-13 12:54 | Emergency (ER) | payer MEDICAID ==
[~2021-12-13] VITALS: Ht 175.3 cm; Wt 82.4 kg
[~2021-12-13 12:54] MED LIST changes: +BUPR1FIL3 SL; +CHOL500050 PO; -CIPR-259 PO; +CLON-369 PO; -CLON-527 PO; +ESCI20TA39 PO; +GABA600T13 PO; +HYDR50TA65 PO; +KEP500T PO; -NABU-139 PO; -ONDA8TAB6 PO; -PHEN-716 PO
[2021-12-13 15:18] VITALS: BP 163/93
[2021-12-13] MEDS ORDERED: PENICILLIN G BENZATHINE 2,400,000 UNIT/4 ML SYRINGE IM ONE (15:40)
[2021-12-13] MEDS ORDERED: CefTRIAXone 500MG IM Kit w/LIDOcaine IM ONE (15:40)
[2021-12-13] MEDS ORDERED: DOXY100C77 PO (16:11)
[2021-12-13] MEDS ORDERED: ACYC-129 PO (16:11)
[2021-12-13] MEDS ORDERED: DOXYCYCLINE 100MG CAPSULE PO SCH (17:30)
== END 2021-12-13 16:29 | disposition home or self-care (01) ==
LOC: ER 12:55
DX: Z20.2 Contact with and (suspected) exposure to infections with a predominantly sexual mode of transmission (principal); R30.9 Painful micturition, unspecified; N89.8 Other specified noninflammatory disorders of vagina; J45.909 Unspecified asthma, uncomplicated; Z86.14 Personal history of Methicillin resistant Staphylococcus aureus infection; Z59.00 Homelessness unspecified; Z88.2 Allergy status to sulfonamides; Z88.8 Allergy status to other drugs, medicaments and biological substances; Z79.2 Long term (current) use of antibiotics; Z79.899 Other long term (current) drug therapy
CPT/HCPCS: 36415; 86592; 96372; 99284; J0561; J0696

== ENCOUNTER 2021-12-27 04:48 | Emergency (ER) | payer MEDICAID ==
[~2021-12-27] VITALS: Ht 175.3 cm; Wt 78.3 kg
[2021-12-27 05:23] VITALS: BP 162/109
== END 2021-12-27 09:51 | disposition left against medical advice (07) ==
LOC: ER 04:49
DX: A49.02 Methicillin resistant Staphylococcus aureus infection, unspecified site (principal); Z53.21 Procedure and treatment not carried out due to patient leaving prior to being seen by health care provider

== ENCOUNTER 2022-02-22 08:19 | Emergency (ER) | payer MEDICAID ==
[~2022-02-22] VITALS: Ht 177.8 cm; Wt 80.0 kg
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
[2022-02-22 08:29] VITALS: BP 129/82
--- NOTE | 2022-02-22 09:04 | NUR ---
patient eloped at this time. states "you guys arent even doing anything for me and i still havent been changed". states she wanted to leave and be reunited with "letty" who was her friend of three days. she was upset we could not let him back because he could not provide patient name for verification. patient refused to sign AMA forms, states "she will make our jobs easier by leaving and will probably see us again when she accidentally overdoses again". ER MD warren, orquidea left department
== END 2022-02-22 09:08 | disposition left against medical advice (07) ==
LOC: ER 08:19
DX: T50.901A Poisoning by unspecified drugs, medicaments and biological substances, accidental (unintentional), initial encounter (principal); Z53.21 Procedure and treatment not carried out due to patient leaving prior to being seen by health care provider

== ENCOUNTER 2022-06-22 20:31 | Emergency (ER) | payer MEDICAID ==
[~2022-06-22] VITALS: Ht 154.9 cm; Wt 61.0 kg
[2022-06-22 21:46] VITALS: BP 126/84
== END 2022-06-22 21:31 | disposition home or self-care (01) ==
LOC: ER 20:31
DX: F10.129 Alcohol abuse with intoxication, unspecified (principal); F19.10 Other psychoactive substance abuse, uncomplicated; R42 Dizziness and giddiness; J45.909 Unspecified asthma, uncomplicated; Z86.14 Personal history of Methicillin resistant Staphylococcus aureus infection; Z59.00 Homelessness unspecified; Z88.2 Allergy status to sulfonamides; Z88.8 Allergy status to other drugs, medicaments and biological substances; Z79.899 Other long term (current) drug therapy; Y90.9 Presence of alcohol in blood, level not specified
CPT/HCPCS: 99283

== ENCOUNTER 2024-05-09 17:03 | Emergency (ER) | payer MEDICAID ==
[~2024-05-09] VITALS: Ht 170.2 cm; Wt 76.8 kg
[2024-05-09 18:03] VITALS: BP 97/61; PULSE 86; RESP 18; TEMP 97.8; O2SAT 97
== END 2024-05-09 19:16 | disposition left against medical advice (07) ==
LOC: ER 17:03
DX: F14.129 Cocaine abuse with intoxication, unspecified (principal); Z53.21 Procedure and treatment not carried out due to patient leaving prior to being seen by health care provider

== ENCOUNTER 2024-05-10 07:35 | Emergency (ER) | payer MEDICAID ==
[~2024-05-10] VITALS: Ht 177.8 cm; Wt 79.1 kg
[2024-05-10 07:41] VITALS: BP 138/50; PULSE 61; RESP 18; TEMP 98; O2SAT 99
== END 2024-05-10 09:05 | disposition home or self-care (01) ==
LOC: ER 07:36
DX: F19.20 Other psychoactive substance dependence, uncomplicated (principal); F11.20 Opioid dependence, uncomplicated; R06.02 Shortness of breath; M79.89 Other specified soft tissue disorders; J45.909 Unspecified asthma, uncomplicated; F17.200 Nicotine dependence, unspecified, uncomplicated; Z88.2 Allergy status to sulfonamides; Z88.8 Allergy status to other drugs, medicaments and biological substances; Z79.899 Other long term (current) drug therapy; Z59.00 Homelessness unspecified
CPT/HCPCS: 71045; 99283

== ENCOUNTER 2024-11-23 02:38 | Inpatient (IN) | payer MEDICAID ==
[~2024-11-23] VITALS: Ht 175.3 cm; Wt 78.9 kg
[~2024-11-23 02:38] MED LIST changes: +GABA-1405 PO; -GABA600T13 PO
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
[2024-11-23] MEDS ORDERED: tranexamic acid inj. 1,000 MG in normal saline 100ml IV soln 90 ML IV ONE (02:55)
[2024-11-23] MEDS: tranexamic acid 1gm/0.7% sal. 100 ML IV ONE (03:01)
[2024-11-23 03:13] LABS: BASOPHILS # (AUTO) 0.2 X10'3 (0-0.2); BASOPHILS % (AUTO) 1.2 % (0-1); EOSINOPHILS # (AUTO) 0.1 X10'3 (0-0.9); EOSINOPHILS % (AUTO) 0.8 % (0-6); HEMATOCRIT 37.8 % (35.0-45.0); HEMOGLOBIN 12.6 g/dl (12.0-16.0); LYMPHOCYTES # (AUTO) 5.6 X10'3 (1.1-4.8); LYMPHOCYTES % (AUTO) 43.4 % (21-51); MEAN CORPUSCULAR HEMOGLOBIN 29.7 PG (27.0-31.0); MEAN CORPUSCULAR HGB CONC 33.4 g/dL (33.0-36.5); MEAN CORPUSCULAR VOLUME 88.9 FL (78-98); MEAN PLATELET VOLUME 7.1 FL (7.4-10.4); MONOCYTES # (AUTO) 0.6 X10'3 (0-0.9); MONOCYTES % (AUTO) 4.9 % (2-12); NEUTROPHILS # (AUTO) 6.4 X10'3 (1.8-7.7); NEUTROPHILS % (AUTO) 49.7 % (42-75); PLATELET COUNT 357 X10'3 (140-440); RED BLOOD COUNT 4.25 X10'6 (4.20-5.60); WHITE BLOOD COUNT 12.9 X10'3 (4.5-11.0)
[2024-11-23] MEDS: ondansetron/PF 4mg/2ml inj IV ONE (03:16)
[2024-11-23] MEDS: HYDROmorphone 1 mg/ml syringe IV ONE ×2 (03:17→03:32)
[2024-11-23] MEDS: normal saline 1000ml 1,000 ML IV ONE ×2 (03:17→05:50)
[2024-11-23 03:19] LABS: ALBUMIN 3.8 G/DL (3.4-5.0); ANION GAP 9 (8-16); BLOOD UREA NITROGEN 12 MG/DL (7-18); BUN/CREATININE RATIO 12.8 (10.0-20.0); CALCIUM 8.9 MG/DL (8.5-10.1); CHLORIDE 112 MMOL/L (99-107); CREATININE 0.94 MG/DL (0.40-0.90); ETHANOL 196 MG/DL (<10); GLUCOSE 94 MG/DL (70-104); MAGNESIUM 1.9 MG/DL (1.5-2.4); POTASSIUM 3.8 MMOL/L (3.5-5.1); SODIUM 146 MMOL/L (135-145); TOTAL CARBON DIOXIDE 24.7 MMOL/L (24-32); eGFR 67 ML/MIN
[2024-11-23 03:22] LABS: APTT 25 SECONDS (22-32); PROTHROMBIN TIME 10.2 SECONDS (9.0-12.0)
[2024-11-23] MEDS: LIDOcaine 1% W/epiNEPHrine 1:100,000 20ml vial SQ ONE (03:34)
[2024-11-23] MEDS ORDERED: iohexol 350MG/ML 100ml bottle IV ONE (03:43)
--- NOTE | 2024-11-23 04:31 | RADIOLOGY REPORT ---
DI ELBOW,LIMITED (AP/LAT), INDICATION: arm lac LEFT TECHNICAL DATA: Frontal, oblique and lateral views were obtained of the left elbow. COMPARISON: None IMPRESSION: No acute fracture or dislocation. Bandage material present at the elbow.
--- NOTE | 2024-11-23 04:56 | PROGRESS NOTE ---
Progress Note ID Providers to CC ~ Progress Note Progress Note: pt seen and examined-now with palpable radial/ulnar pulses-needs exploration in or-discussed procedure including risks/benefits/alternatives DEMETRIUS ORDONEZ MD November 23, 2024 04:56
--- NOTE | 2024-11-23 05:07 | RADIOLOGY REPORT ---
Procedure: CT CTA UPPER EXTREMITY Reason for study/Clinical History: laceration Comparison Study: Radiographs of the left elbow performed earlier same date.. DATED 11/23/2024 03:55 AM TECHNIQUE: CT angiography of the left upper extremity was performed. 100 mL of Omnipaque 350 intraven ous contrast was used. Coronal and sagittal reformatted images are submitted. 3D Post processing, including maximum intensity projection, was performed and images were reviewed o n a PACS workstation. FINDINGS: There is no intramuscular hematoma. There is fat stranding, high density fluid suggesting subcutaneou s hematoma with overlying dressing in the medial elbow. There is subcutaneous emphysema in the soft t issues of the elbow. The left subclavian, axillary and proximal brachial artery are patent. There is lack opacification in the distal brachial artery, radial and ulnar arteries. No active contrast ext ravasation seen. No pseudoaneurysm. No acute fracture or dislocation. IMPRESSION: 1. No evidence of acute vascular injury in the arm. Lack of opacification of the distal brachial art catrachita, radial and ulnar arteries may be related to technique however vascular injury is not entirely ex cluded and correlation for pulses at the elbow and in the forearm is suggested. 2. Subcutaneous hematoma and emphysema consistent with the history of laceration.
[2024-11-23 06:22] VITALS: BP 107/71; PULSE 76; RESP 16; TEMP 97.6; O2SAT 100
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
[2024-11-23] MEDS: TETanus/Pertussis (Acell)/Diphther VAC/PF (Tdap-Adult) 0.5ml syringe IMVAC ONE (07:00)
[2024-11-23] MEDS ORDERED: ondansetron/PF 4mg/2ml inj IV PRN ×2 (07:25→08:55)
[2024-11-23] MEDS ORDERED: ringers solution, lacted 1,000 ML IV SCH (07:25)
[2024-11-23] MEDS ORDERED: morphine 4 MG/ML inj SYRINge IV PRN (07:25)
[2024-11-23] MEDS ORDERED: hydrALAZINE 20mg/ml inj. IV PRN (07:25)
[2024-11-23] MEDS ORDERED: labetalol 20mg/4ml (5mg/ml) syringe IV PRN (07:25)
[2024-11-23] MEDS ORDERED: fentaNYL/PF 50MCG/1 ML 2ML syringe IV PRN ×2 (07:25)
[2024-11-23] MEDS ORDERED: morphine 2 MG/ML inj. syringe IV PRN ×3 (07:25→08:55)
[2024-11-23] MEDS ORDERED: fentaNYL/PF 50MCG/1 ML 2ML syringe ONE (07:52)
[2024-11-23] MEDS ORDERED: LIDOcaine 2% (20mg/ml) 5ml vial ONE (07:53)
[2024-11-23] MEDS ORDERED: midazolam 1 mg/ML 2ml injection ONE (07:53)
[2024-11-23] MEDS ORDERED: propofol inj 20 ML IV ONE (07:53)
[2024-11-23] MEDS ORDERED: dexamethasone sod phosphate 4mg/ml inj. ONE (07:53)
[2024-11-23] MEDS ORDERED: ondansetron/PF 4mg/2ml inj ONE (07:53)
[2024-11-23] MEDS ORDERED: ceFAZolin/D5W- 1GM premix 50 ML IV SCH (08:00)
[2024-11-23] MEDS ORDERED: ceFAZolin 2gm in dextrose, iso 2,000 MG/50 ML BAG IV ONE (08:02)
[2024-11-23] MEDS ORDERED: acetaminophen 1,000mg/100ml IV 100 ML IV ONE (08:17)
[2024-11-23] MEDS ORDERED: ePHEDrine 50MG/ML INJ. ONE (08:40)
[2024-11-23] MEDS ORDERED: acetaminophen 325mg tablet PO PRN ×2 (08:55)
[2024-11-23] MEDS ORDERED: ondansetron 4mg rapidly disintigrating tab PO PRN (08:55)
[2024-11-23] MEDS ORDERED: potassium Cl 20 mEq SR tablet PO PRN ×2 (08:55)
[2024-11-23] MEDS ORDERED: magnesium hydroxide 30ml (MOM) UD suspension PO PRN (08:55)
[2024-11-23] MEDS ORDERED: HYDROcodone/acetaminophen 10/325mg tab PO PRN (08:55)
[2024-11-23] MEDS ORDERED: magnesium sulf-water 2g/50mL 50 ML IV PRN (08:55)
[2024-11-23] MEDS ORDERED: potassium Cl 40MEQ/1/2NS 520ml 520 ML IV PRN (08:55)
[2024-11-23] MEDS ORDERED: mag hydrox/Alum hydrox/simeth 30ml oral suspension PO PRN (08:55)
[2024-11-23] MEDS ORDERED: magnesium sulf-water 4G/100mL 100 ML IV PRN (08:55)
[2024-11-23 09:19] VITALS: BP 120/69; PULSE 102; RESP 16; O2SAT 100
--- NOTE | 2024-11-23 09:27 | OPERATIVE REPORT ---
Operative Report Providers to CC ~ Date of Procedure: November 23, 2024 Pre-Operative Diagnosis: complex laceration left arm Post-Operative Diagnosis SAME as PRE-Op Procedure Performed exploration left arm/repair muscle laceration Surgeon: [facility] Human Resources Manager none Anesthesiologist: Korey Cardoza Type of Anesthesia: General Findings: muscle laceration/no vascular injury Estimated Blood Loss: min Specimen Removed: none DEMETRIUS ORDONEZ MD November 23, 2024 09:27
[2024-11-23 09:30] VITALS: BP 101/67; PULSE 90; RESP 16; O2SAT 94
[2024-11-23] MEDS ORDERED: HYDROcodone/acetaminophen 5mg/325mg tablet PO PRN (09:35)
[2024-11-23] MEDS ORDERED: potassium CL 20mEq in D5-1/2NS 1,000 ML IV SCH (09:35)
[2024-11-23] MEDS ORDERED: naloxone 0.4 mg/ml inj IV PRN (09:35)
[2024-11-23 09:50] VITALS: PULSE 89; RESP 14; O2SAT 96
[2024-11-23] MEDS: HYDROcodone/acetaminophen 5mg/325mg tablet PO PRN (09:53)
[2024-11-23 10:10] VITALS: BP 122/71; PULSE 69; RESP 12; O2SAT 97
[2024-11-23] MEDS ORDERED: ceFAZolin 1GM/D5W- ADD-VANTAGE 50 ML IV SCH (16:00)
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
[2024-11-23] MEDS ORDERED: LORazepam 2 mg/ml vial IV PRN (19:45)
[2024-11-23] MEDS ORDERED: dextrose 50%-water 50ml dispensing syringe IV PRN (19:45)
[2024-11-23] MEDS ORDERED: haloperidol 5mg tablet PO PRN (19:45)
[2024-11-23] MEDS ORDERED: haloperidol lactate 5mg/ml inj IM PRN (19:45)
[2024-11-23] MEDS ORDERED: docusate sod 100mg capsule PO SCH (20:00)
[2024-11-23] MEDS ORDERED: heparin, porcine 5000 units/ml vial SQ SCH (20:00)
[2024-11-23] MEDS ORDERED: K and/or MAG REPLACEMENT MC SCH (20:00)
[2024-11-23] MEDS ORDERED: thiamine 100mg/ml 2ml inj. IV SCH (21:00)
--- NOTE | 2024-11-24 01:06 | OPERATIVE REPORT ---
DATE OF SURGERY: 11/23/2024 DICTATING PHYSICIAN: Jack Paz MD PREOPERATIVE DIAGNOSIS: Complex laceration, left antecubital fossa. POSTOPERATIVE DIAGNOSES: * Complex laceration, left antecubital fossa. * Lacerated biceps muscle belly. PROCEDURE PERFORMED: Exploration of wound with repair of muscle laceration. SURGEON: Jack Paz MD BUSINESS REPRESENTATIVE: None. ANESTHESIA: General/Dr. Cardoza. DRAINS: None. INDICATIONS FOR OPERATION: A 34-year-old female sustained a laceration with extensive bleeding. Taken to surgery for exploration. INTRAOPERATIVE FINDINGS: Lacerated muscle belly. No vascular injury. DESCRIPTION OF PROCEDURE: The patient was placed supine on the operating table. After induction of general anesthesia, left arm and left leg were prepped and draped. After timeout was performed, left arm was subsequently explored. Incision was extended superiorly and inferiorly to provide better exposure of the involved structures. muscle belly was identified. The patient had a palpable brachial pulse. The patient had good pulse in the radial by Doppler. The patient had good radial pulse in the wrist as well. The wound was then irrigated. Muscle fascia was reapproximated with sutures of 0 Vicryl. Subcutaneous tissue was reapproximated using interrupted sutures. Skin was closed with clips. Dressing applied, sling place and patient transferred to recovery room in stable condition. Jack Paz MD TID: [id number] RECEIPT: [id number] ERIN/SUJIT
[2024-11-24] MEDS ORDERED: folic acid 1mg/0.2ml inj IV SCH (08:00)
[2024-11-25] MEDS ORDERED: LORazepam 2 mg/ml vial IV PRN (19:45)
[2024-11-25] MEDS ORDERED: LORazepam 1 MG tablet PO PRN (19:45)
[2024-11-27] MEDS ORDERED: thiamine 100mg tablet PO SCH (08:00)
[2024-11-27] MEDS ORDERED: LORazepam 1 MG tablet PO PRN (19:45)
[2024-11-27] MEDS ORDERED: LORazepam 2 mg/ml vial IV PRN (19:45)
[2024-11-28] MEDS ORDERED: folic acid 1mg tablet PO SCH (08:00)
== END 2024-11-23 19:55 | disposition left against medical advice (07) | DRG 710 ==
LOC: ER 02:39 → PAS IN 08:57
PROVIDERS: ADMIT Nurse Practitioner Family; ATTEND Nurse Practitioner Family
PROC: 0JQH0ZZ Repair Left Lower Arm Subcutaneous Tissue and Fascia, Open Approach (ICD-10-PCS; 2024-11-23)
PROC: 0KQ80ZZ Repair Left Upper Arm Muscle, Open Approach (ICD-10-PCS; principal; 2024-11-23 08:02)
DX: A41.9 Sepsis, unspecified organism (principal); R57.1 Hypovolemic shock; E87.0 Hyperosmolality and hypernatremia; F10.229 Alcohol dependence with intoxication, unspecified; S51.812A Laceration without foreign body of left forearm, initial encounter; S51.012A Laceration without foreign body of left elbow, initial encounter; J44.9 Chronic obstructive pulmonary disease, unspecified; Z53.21 Procedure and treatment not carried out due to patient leaving prior to being seen by health care provider; S46.222A Laceration of muscle, fascia and tendon of other parts of biceps, left arm, initial encounter; F15.90 Other stimulant use, unspecified, uncomplicated; L03.818 Cellulitis of other sites; X58.XXXA Exposure to other specified factors, initial encounter; Y93.89 Activity, other specified; Z88.2 Allergy status to sulfonamides; Y92.89 Other specified places as the place of occurrence of the external cause; Y99.8 Other external cause status; Z90.710 Acquired absence of both cervix and uterus; Z59.00 Homelessness unspecified; Z88.8 Allergy status to other drugs, medicaments and biological substances
CPT/HCPCS: 12004; 36415; 73070; 73206; 80048; 80320; 83735; 85025; 85610; 85730; 86885; 86900; 86901; 87535; 99291; 99292; A4565; A4618; A6446; A6449; A7000; J0131; J0690; J1100; J1171; J2003; J2250; J2405; J2704; J3010; J3490; J7030; J7040; J7120; Q9967

== ENCOUNTER 2024-11-25 19:54 | Emergency (ER) | payer MEDICAID ==
[~2024-11-25] VITALS: Ht 175.3 cm; Wt 72.6 kg
[2024-11-25 20:26] VITALS: BP 137/92; PULSE 89; RESP 16; TEMP 98.1; O2SAT 100
== END 2024-11-25 22:30 | disposition left against medical advice (07) ==
LOC: ER 19:54
DX: M79.602 Pain in left arm (principal); Z88.2 Allergy status to sulfonamides; Z88.8 Allergy status to other drugs, medicaments and biological substances; Z53.21 Procedure and treatment not carried out due to patient leaving prior to being seen by health care provider
CPT/HCPCS: A4565

== ENCOUNTER 2024-12-17 10:01 | Emergency (ER) | payer MEDICAID ==
[~2024-12-17] VITALS: Ht 175.3 cm; Wt 89.0 kg
--- NOTE | 2024-12-17 12:59 | Physician Documentation ---
History of Present Illness ~ Chief Complaint: See Chief Complaint Stated Complaint: STAPLE REMOVAL Time Seen by MD: 11:44 Primary Medical Doctor: [facility] HPI 34-year-old female reports a chief complaint of postoperative wound check. Rere ent had a tendon repair done by Dr. Millan on 11/24. Patient states she has had no part operative care is requesting to have her jocelynn removed. Patient currently denies fevers or chills. Denies active drainage or discharge. No other complaints at this time Tetanus within 5 years?: No Medication Reconciliation Allergies: Coded Allergies: Sulfa (Sulfonamide Antibiotics) (Verified Allergy, Intermediate, LEG PAIN, 11/25/24) metoclopramide (Unverified Allergy, Unknown, 11/23/24) prochlorperazine edisylate (Verified Allergy, Unknown, 11/23/24) prochlorperazine maleate (Verified Allergy, Unknown, 11/23/24) Scheduled Buprenorphine Hcl/Naloxone Hcl (Suboxone 8 Mg-2 Mg Sl Film), 1 FILM SL TID Cholecalciferol (Vitamin D3) (Vitamin D3), 1 CAP PO DAILY, (Reported) Escitalopram Oxalate (Escitalopram Oxalate), 1 TAB PO DAILY, (Reported) Gabapentin (Gabapentin), 1 TAB PO QID, (Reported) Levetiracetam (Keppra), 500 MG PO BID Scheduled PRN Clonazepam (Clonazepam), 1 TAB PO BID PRN for anxiety, (Reported) Hydroxyzine HCl (Hydroxyzine HCl), 1 TAB PO QID PRN for anxiety, (Reported) Past Medical History Past Medical History: Asthma, MRSA Abscess, Panic Disorder Past Surgical History: no surgical history Patient History: FH: heart disease Alcohol Use: Abuse Drug Use: methamphetamine, cocaine, heroin, other Lives with: Family Lives In: Homeless Physical Exam Vital Signs: Temperature: 98.3, Source: Oral, Heart Rate: 77, Respiratory Rate: 14, BP: 97/68, Pulse Oximetry: 98, Weight: 89.000 Oxygen Flow Rate: 0 Physical Exam General: Well developed, well nourished, no distress. HEENT: Atraumatic, normal conjunctiva, moist mucous membranes. Neck: Full range of motion, supple. Respiratory: Lungs clear, no respiratory distress. Chest: No accessory muscle use, nontender. Cardiovascular: Regular rate and rhythm. Gastrointestinal: Soft, nontender, nondistended. Bowel sounds present. Extremities: Left forearm exam: Positive for a healing S shaped incision with jocelynn in place to the proximal forearm extending medially over the medial epicondyle. Positive for jocelynn in place. Positive very minimal erythema. Negative for wound dehiscence or active drainage or discharge. Compartments soft compressible. Back: No midline tenderness, no CVA tenderness. Neurologic: Oriented x4. Distal gross motor and sensory intact all four extremities. Moves all 4 extremities spontaneously. Psychiatric: Normal mood and affect. Skin: Normal color, warm and dry. No edema, no ecchymosis Progress Results/Orders Results/Orders Orders - ROMMEL MEJIA General Nursing Order (12/17/24 ) Completed Orders - ROMMEL MEJIA Hydrocodone/Apap 5/325mg Tab ([place] (12/17/24 12:25) Ketorolac Trometh 30mg/Ml Vial (Toradol (12/17/24 12:25) Ondansetron Disint. Tablet (Zofran Odt T (12/17/24 12:25) Vital Signs 12/17/24 12/17/24 10:07 11:53 Temp 98.3 Pulse 89 77 Resp 16 14 B/P (MAP) 127/73 97/68 (78) Pulse Ox 99 98 O2 Flow Rate 0 Medical Decision Making Additional info obtained from: old records Findings After detailed discussion and joint medical decision-making, diagnostic and imaging results were discussed with the patient. At this time patient will have jocelynn removed given antibiotics and pain medication advised to follow up with her surgeon. At this time there is no evidence of wound dehiscence or significant infection. I will cover her with broad-spectrum antibiotics due to his very minimal erythema to the region. ER precautions were given. Patient is stable upon discharge. All patient questions answered to satisfaction Differential Dx:Considerations: Include: Abscess, Cellulitis, Dressing change, Healing wound Departure Disposition: 01 HOME / SELF CARE / HOMELESS Impression: Primary Impression: Visit for wound check Additional Impressions: Removal of staple Wound infection Condition: Stable Referrals: NO PRIMARY CARE PROVIDER (PCP) Prescriptions Clindamycin HCl (Clindamycin HCl) 300 Mg Capsule 1 CAP PO Q8H for 10 Days, #30 CAP Prov: ROMMEL MEJIA 12/17/24 Education Educated: Patient Educated regarding: diagnosis, treatment Signature Scribe Signature: none used Attestation: Scribed for Rommel Mejia Pa by Rommel SINGH . 12/17/24 13:03 ROMMEL MEJIA December 17, 2024 12:59
[2024-12-17] MEDS ORDERED: HYDR-3973 PO (13:02)
[2024-12-17] MEDS ORDERED: CLIN-145 PO (13:02)
[2024-12-17] MEDS: ondansetron 4mg rapidly disintigrating tab PO ONE (13:23)
[2024-12-17] MEDS: HYDROcodone/acetaminophen 5mg/325mg tablet PO ONE (13:24)
[2024-12-17] MEDS: ketorolac trometh 30MG/ML vial 30 MG/ML VIAL IM ONE (13:24)
[2024-12-17 13:31] VITALS: BP 135/86; PULSE 79; RESP 18; TEMP 98.3; O2SAT 99
== END 2024-12-17 13:36 | disposition home or self-care (01) ==
LOC: ER 10:02
DX: S51.812D Laceration without foreign body of left forearm, subsequent encounter (principal); J45.909 Unspecified asthma, uncomplicated; F41.0 Panic disorder [episodic paroxysmal anxiety]; F15.90 Other stimulant use, unspecified, uncomplicated; F14.90 Cocaine use, unspecified, uncomplicated; F11.90 Opioid use, unspecified, uncomplicated; F19.90 Other psychoactive substance use, unspecified, uncomplicated; F10.10 Alcohol abuse, uncomplicated; Y90.9 Presence of alcohol in blood, level not specified; Z59.00 Homelessness unspecified; Z88.2 Allergy status to sulfonamides; Z88.8 Allergy status to other drugs, medicaments and biological substances; Z79.899 Other long term (current) drug therapy; X58.XXXD Exposure to other specified factors, subsequent encounter
CPT/HCPCS: 96372; 99283; J1885; A6258

== ENCOUNTER 2025-06-22 20:23 | Emergency (ER) | payer MEDICAID ==
[~2025-06-22] VITALS: Ht 175.3 cm; Wt 63.6 kg
[2025-06-22 20:30] VITALS: BP 131/84; PULSE 90; RESP 16; O2SAT 100
--- NOTE | 2025-06-23 00:20 | Physician Documentation ---
History of Present Illness ~ Chief Complaint: Wound Stated Complaint: MULTIPLE MED COMPLAINTS Time Seen by MD: 23:00 Primary Medical Doctor: [facility] HPI Patient is a very pleasant 35-year-old female that presents to the emergency department for evaluation of cellulitis to her right hand. Patient reports he was diagnosed with cellulitis couple of days ago at [place]. She was unable to get her antibiotics at that time due to the holiday. Patient is also out of Suboxone and Klonopin and needs a bridge until Wednesday when she can turkey picker her prescriptions and follow up with her provider at [facility]. Patient denies fever chills nausea vomiting diarrhea at this time. Tetanus within 5 years?: No Medication Reconciliation Allergies: Coded Allergies: Sulfa (Sulfonamide Antibiotics) (Verified Allergy, Intermediate, LEG PAIN, 06/22/25) metoclopramide (Unverified Allergy, Unknown, 06/22/25) prochlorperazine edisylate (Verified Allergy, Unknown, 06/22/25) prochlorperazine maleate (Verified Allergy, Unknown, 06/22/25) Scheduled Buprenorphine Hcl/Naloxone Hcl (Suboxone 8 Mg-2 Mg Sl Film), 1 FILM SL TID Cholecalciferol (Vitamin D3) (Vitamin D3), 1 CAP PO DAILY, (Reported) Escitalopram Oxalate (Escitalopram Oxalate), 1 TAB PO DAILY, (Reported) Gabapentin (Gabapentin), 1 TAB PO QID, (Reported) Levetiracetam (Keppra), 500 MG PO BID Scheduled PRN Clonazepam (Clonazepam), 1 TAB PO BID PRN for anxiety, (Reported) Hydroxyzine HCl (Hydroxyzine HCl), 1 TAB PO QID PRN for anxiety, (Reported) Past Medical History Past Medical History: Asthma, MRSA Abscess, Panic Disorder Past Surgical History: no surgical history Patient History: FH: heart disease Alcohol Use: Abuse Drug Use: methamphetamine, cocaine, heroin, other Lives with: Family Lives In: Homeless Review of Systems ROS As stated above in the HPI, otherwise all systems are reviewed and negative. Physical Exam Vital Signs: Temperature: 98.9, Source: Oral, Heart Rate: 90, Respiratory Rate: 16, BP: 131/84, Pulse Oximetry: 100, Weight: 63.600 Physical Exam VITALS: Reviewed and as above. GENERAL: Alert, no apparent distress. SKIN: Warm and dry, edema mild erythema noted to the right hand and thumb. NEURO: Oriented x4, No motor or sensory deficit PSYCH: Normal mood and affect, no agitation Progress Results/Orders Results/Orders Vital Signs 06/22/25 20:30 Temp 98.9 Pulse 90 Resp 16 B/P (MAP) 131/84 Pulse Ox 100 Medical Decision Making Additional information obtaine: other Findings Patient: 35-year-old female Diagnosis: Uncomplicated cellulitis of right hand History & Presentation: Patient presented with erythema, swelling, and tenderness of the right hand, consistent with cellulitis. She was previously diagnosed but unable to obtain antibiotics due to the holiday. She denies fever, chills, nausea, vomiting, or diarrhea. No evidence of abscess, necrosis, or systemic inflammatory response syndrome (SIRS). No immunocompromising conditions reported. Medical Decision-Making: Antibiotic Therapy: Initiated oral cephalexin and trimethoprim-sulfamethoxazole (Bactrim) for empiric coverage of both streptococci and community-associated MRSA, given local prevalence and risk factors. Although IDSA guidelines recommend streptococcal coverage alone for nonpurulent cellulitis, combination therapy is reasonable in settings with high MRSA prevalence or risk factors. Duration: 57 days, with extension if clinical improvement is inadequate. Patient education provided regarding signs of worsening infection and need for prompt reassessment if symptoms progress. Opioid Use Disorder Management: Patient is out of buprenorphine/naloxone (Suboxone) and clonazepam (Klonopin). Provided a bridging dose of Suboxone per FDA recommendations for continuity of opioid use disorder treatment until follow-up with her provider. Risks of concomitant benzodiazepine and buprenorphine use discussed; patient advised regarding increased risk of respiratory depression and sedation. No evidence of sedation at time of dosing; patient stable for outpatient management. Disposition: Discharged home with oral antibiotics (cephalexin and Bactrim) and a bridging dose of Suboxone. Advised to elevate affected hand, monitor for clinical improvement, and follow up with her provider at [place] on Wednesday. Return precautions reviewed, including signs of systemic illness or worsening local infection. Rationale: Management is consistent with current guidelines for uncomplicated cellulitis and opioid use disorder, with attention to local MRSA prevalence and drug safety. Differential Dx:Considerations: Include: Abscess, Cellulitis, Dressing change, Healing wound, Other Departure Disposition: HOME / SELF CARE / HOMELESS Impression: Primary Impression: Wound Additional Impression: Medication refill Condition: Stable Discharge Instructions: Cellulitis, Adult, [id number] Additional Instructions: Diagnosis and Treatment You are being treated for cellulitis (a skin infection) of your right hand. You have been prescribed two antibiotics: Bactrim and Keflex (cephalexin). These medications work together to fight the bacteria causing your infection. How to Take Your Medications Take Bactrim and Keflex exactly as prescribed. Do not skip doses, and finish the entire course even if you start to feel better. Stopping early or missing doses can make the infection harder to treat and increase the risk of resistance. Drink plenty of fluids while taking Bactrim to help prevent kidney problems. If you develop a rash, fever, sore throat, joint pain, yellowing of the skin or eyes, or trouble breathing, stop the medication and seek medical attention immediately. Diarrhea is a common side effect of antibiotics. If you have severe watery or bloody diarrhea, contact your healthcare provider. Supportive Care Elevate your hand as much as possible to reduce swelling and help healing. Keep the area clean and dry. You may gently wash with soap and water, but avoid scrubbing. Watch for signs of worsening infection: increased redness, swelling, pain, warmth, pus, or fever. If these occur, seek medical care promptly. Suboxone and Klonopin You have received a dose of Suboxone and a two-day supply of Klonopin to bridge until you can follow up with your provider. Take Suboxone and Klonopin only as directed. Do not take extra doses or mix with alcohol or other sedating medications, as this can cause serious breathing problems, excessive sleepiness, or even . If you feel unusually sleepy, confused, or have trouble breathing, get medical help right away. Do not drive or operate heavy machinery until you know how these medications affect you. Do not stop Klonopin suddenly; follow your providers instructions for tapering if needed to avoid withdrawal symptoms. Follow-Up It is important to follow up with your primary care provider at [place] as planned. If your symptoms do not improve within 48 hours, or if you develop new symptoms (such as fever, chills, or spreading redness), contact your provider or return to the emergency department. Other Important Information Take all medications exactly as prescribed. Do not share your medications with anyone. If you miss a dose, take it as soon as you remember. If it is almost time for your next dose, skip the missed dose and continue your regular schedule. If you have any questions or concerns, contact your healthcare provider. Thank you for following these instructions to help ensure a safe and speedy recovery. Referrals: NO PRIMARY CARE PROVIDER (PCP) Prescriptions Cephalexin*Monohydrate* (Keflex*) 500 Mg Capsule 1 CAP PO QID for 7 Days, #28 CAP Prov: DENICE PASCUAL 06/23/25 Doxycycline Hyclate (Doxycycline Hyclate) 100 Mg Capsule 1 CAP PO Q12H for 10 Days, #20 CAP Prov: DENICE PASCUAL 06/23/25 Clonazepam (Klonopin) 0.5 Mg Tablet 1 TAB PO Q12H PRN PRN for anxiety for 3 Days, #6 TAB 0 Refills Prov: DENICE PASCUAL 06/23/25 Education Educated: Patient Educated regarding: diagnosis, treatment, need for follow up Signature Scribe Signature: A Attestation: Scribed for Denice Pascual by CEDRICK Glover . 06/23/25 00:38 DENICE PASCUAL Jun 23, 2025 00:20
[2025-06-23] MEDS ORDERED: CLON0.5T2 PO (00:32)
[2025-06-23] MEDS ORDERED: CEPH-585 PO (00:34)
[2025-06-23] MEDS ORDERED: DOXY-1 PO (00:34)
[2025-06-23 00:43] VITALS: TEMP 98.9
[2025-06-23] MEDS: buprenorphine/naloxone 8MG-2MG SUBlingual film SL SCH (01:03)
[2025-06-23] MEDS: DOXYCYCLINE 100MG CAPSULE PO STA (01:03)
== END 2025-06-23 01:09 | disposition home or self-care (01) ==
LOC: ER 20:24
DX: S60.921A Unspecified superficial injury of right hand, initial encounter (principal); Z76.0 Encounter for issue of repeat prescription; L03.113 Cellulitis of right upper limb; J45.909 Unspecified asthma, uncomplicated; F11.10 Opioid abuse, uncomplicated; Z88.2 Allergy status to sulfonamides; Z88.8 Allergy status to other drugs, medicaments and biological substances; X58.XXXA Exposure to other specified factors, initial encounter; Y93.89 Activity, other specified; Y92.89 Other specified places as the place of occurrence of the external cause; Y99.8 Other external cause status
CPT/HCPCS: 99284

== ENCOUNTER 2025-06-26 17:12 | Inpatient (IN) | payer MEDICAID ==
[~2025-06-26] VITALS: Ht 175.3 cm; Wt 74.8 kg
[~2025-06-26 17:12] MED LIST changes: +CEPH-585 PO; +CLON0.5T2 PO; +DOXY-1 PO
--- NOTE | 2025-06-26 17:44 | RADIOLOGY REPORT ---
EXAM: DI HAND, COMPLETE (3VW MIN) INDICATION: HAND PAIN RIGHT TECHNIQUE: 3 views of the right hand COMPARISON: None FINDINGS/IMPRESSION: No radiographic evidence of an acute osseous abnormality. There is no acute fracture, osseous malalignment, or aggressive focal osseous lesion. Question diffuse soft tissue swelling
--- NOTE | 2025-06-26 18:25 | Physician Documentation ---
History of Present Illness ~ Chief Complaint: Hand pain Stated Complaint: HAND PAIN/CELLULITIS Time Seen by MD: 17:54 Primary Medical Doctor: Tamar Meier [facility] Mode of Arrival: POV HPI Patient is seen today with complaints of pain and swelling and immobility of her right thumb has been going on for over a week. Patient states he started taken Keflex about a week ago and has seen no improvement and the swelling and pain has become worse. Patient denies any fevers or chills currently. She has no other concern or complaint at this time. Tetanus within 5 years: No Medication Reconciliation Allergies: Coded Allergies: Sulfa (Sulfonamide Antibiotics) (Verified Allergy, Intermediate, LEG PAIN, 06/22/25) metoclopramide (Unverified Allergy, Unknown, 06/22/25) prochlorperazine edisylate (Verified Allergy, Unknown, 06/22/25) prochlorperazine maleate (Verified Allergy, Unknown, 06/22/25) Scheduled Bictegrav/Emtricit/Tenofov Ala (Biktarvy 50-200-25 mg Tablet), 1 TAB PO DAILY, (Reported) Escitalopram Oxalate (Escitalopram Oxalate), 1 TAB PO DAILY, (Reported) Gabapentin (Gabapentin), 1 TAB PO QID, (Reported) Gabapentin (Gabapentin), 1 TAB PO Q6H, (Reported) Metoprolol Succinate (Metoprolol Succinate), 1 TAB PO DAILY, (Reported) Quetiapine Fumarate (Quetiapine Fumarate), 1 TAB PO HS, (Reported) Scheduled PRN Buprenorphine HCl/Naloxone HCl (Buprenorphine-Nalox 8-2Mg Film), 1 STRIP SL TID PRN for for anxiety/agitation, (Reported) Clonazepam (Clonazepam), 1 TAB PO BID PRN for anxiety, (Reported) Hydroxyzine HCl (Hydroxyzine HCl), 1 TAB PO QID PRN for anxiety, (Reported) Miscellaneous Medications [Albuterol], (Reported) Discontinued Medications Cephalexin*Monohydrate* (Keflex*), 1 CAP PO QID Discontinued Reason: patient no longer taking Cholecalciferol (Vitamin D3) (Vitamin D3), 1 CAP PO DAILY, (Reported) Discontinued Reason: patient no longer taking Doxycycline Hyclate (Doxycycline Hyclate), 1 CAP PO Q12H Discontinued Reason: patient no longer taking Levetiracetam (Keppra), 500 MG PO BID Discontinued Reason: patient no longer taking Past Medical History Past Medical History: Asthma, MRSA Abscess, Panic Disorder Past Surgical History: no surgical history Patient History: FH: heart disease Alcohol Use: Abuse Drug Use: methamphetamine, cocaine, heroin, other Lives with: Family Lives In: Homeless Review of Systems Constitutional: Denies: chills, fever, weakness Eyes: Denies: pain, blurred vision ENT: Denies: ear pain, nose pain, throat pain, mouth pain Respiratory: Denies: cough, shortness of breath Cardiovascular: Denies: chest pain, palpitations Gastrointestinal: Denies: abdominal pain, nausea, vomiting Genitourinary: Denies: burning, dysuria Female Genitalia: Denies: vaginal discharge, pelvic pain Neurological: Denies: headache, dizziness Musculoskeletal: Denies: pain, swelling Integumentary: Denies: rash, lesions Allergic/Immunologic: Denies: hives, itching Hematologic/Lymphatic: Denies: no symptoms reported Psychiatric: Denies: depression, anxiety Physical Exam Vital Signs: Temperature: 98.2, Source: Oral, Heart Rate: 118, Respiratory Rate: 14, BP: 132/74, Pulse Oximetry: 99, Weight: 74.800 Oxygen Flow Rate: 0 Physical Exam General: Awake and Alert, no acute distress. HEENT: Conjunctiva pink, Sclera clear, Mucus Membranes moist. Neck: Supple without masses and tenderness. Resp: Unlabored. Lungs clear to auscultation bilaterally. Heart: Regular Rate and rhythm, normal S1 and S2 without murmur, rub or gallop. Musculoskeletal: Patient on exam does have significant swelling and erythema and induration and sausage finger of the right thumb with tenderness to palpation extending proximally of the 1st extensor compartment. Patient has absolutely 0 active flexion or extension of the right thumb. Patient has altered light touch sensation of right thumb. Extremities: No cyanosis,clubbing or edema. Skin: Warm and Dry. Progress Results/Orders Results/Orders Orders - CONNOR AGUAYO PAC Piperacillin/Tazo 4.5gm/100ml (Zosyn 4.5 (06/26/25 18:36) Hcg, Ur Ql (06/26/25 18:37) Urinalysis, Cult If Indicated (06/26/25 18:37) Drug Screen, Urine (06/26/25 18:37) Page Hospitalist (06/26/25 18:39) Fill Out Med Reconciliation (06/26/25 18:39) Completed Orders - CONNOR AGUAYO PAC Cbc/Diff (06/26/25 18:37) Electrocardiogram (06/26/25 18:37) BMP (06/26/25 18:37) Lacticsepsis (06/26/25 18:37) Medications Received in ER Medications (Trade) Dose Ordered Sig/Alejo Route PRN Reason Start Time Stop Time Status Last Admin Dose Admin Piperacillin/ Tazobactam/ Dextrose 100 ml @ 25 mls/hr ONCE STAT IV 06/26/25 18:36 06/26/25 22:35 06/26/25 18:36 25 MLS/HR Vital Signs 06/26/25 06/26/25 17:14 17:44 Temp 98.2 Pulse 118 Resp 16 14 B/P (MAP) 132/74 Pulse Ox 99 O2 Flow Rate 0 Laboratory Tests Test 06/26/25 19:16 White Blood Count 12.1 H Red Blood Count 3.64 L Hemoglobin 10.9 L Hematocrit 32.6 L Mean Corpuscular Volume 89.5 Mean Corpuscular Hemoglobin 29.8 Mean Corpuscular Hemoglobin Concent 33.4 Red Cell Distribution Width 13.8 Platelet Count 454 H Mean Platelet Volume 6.3 L Neutrophils (%) (Auto) 67.0 Lymphocytes (%) (Auto) 26.0 Monocytes (%) (Auto) 4.8 Eosinophils (%) (Auto) 1.6 Basophils (%) (Auto) 0.6 Neutrophils # (Auto) 8.1 H Lymphocytes # (Auto) 3.1 Monocytes # (Auto) 0.6 Eosinophils # (Auto) 0.2 Basophils # (Auto) 0.1 CBC Comment Sodium Level 141 Potassium Level 4.0 Chloride Level 105 Carbon Dioxide Level 27.6 Anion Gap 8 Blood Urea Nitrogen 10 Creatinine 0.65 Estimated GFR/1.73 m2 > 90 BUN/Creatinine Ratio 15.4 Glucose Level 90 Lactic Acid Level 1.3 Calcium Level 8.6 Albumin 2.9 L Chemistry Comments EKG/XRAY/CT/US/VASC/MRI Bone/Soft Tissue X-Ray (Ext.) : Additional Comment X-ray of right hand interpreted by myself today shows no sign of acute fracture, bones in anatomic alignment, extensive soft tissue swelling. DIAGNOSTIC RADIOLOGY Patient: MARTI DEL CASTILLO Medical Record: [id number] [facility] : 1990, Age: 35 Sex: Female Location: ER Patient Status: [facility] ER Service Date/Time: 06/26/251728 Ordering Physician: MARIA DOLORES MCELROY MD Exam: HAND, COMPLETE (3VW MIN) EXAM: DI HAND, COMPLETE (3VW MIN) INDICATION: HAND PAIN RIGHT TECHNIQUE: 3 views of the right hand COMPARISON: None FINDINGS/IMPRESSION: No radiographic evidence of an acute osseous abnormality. There is no acute fracture, osseous malalignment, or aggressive focal osseous lesion. Question diffuse soft tissue swelling Electronically Signed by:JASEN CHAUDHRY MD Date & Time: 06/26/251741 Dictated by: JASEN CHAUDHRY MD Dictation date and time: 06/26/251741 Primary Care Provider: NO PRIMARY CARE PROVIDER cc: MARIA DOLORES MCELROY MD ~ Medical Decision Making Additional information obtaine: N/A Findings Patient is seen today with complaints of pain and swelling and immobility of her right thumb has been going on for over a week. Patient states he started taken Keflex about a week ago and has seen no improvement and the swelling and pain has become worse. Patient denies any fevers or chills currently. She has no other concern or complaint at this time. Patient will be admitted for further eval and consult and IV antibiotics. IV Zosyn was ordered. Hospitalist was consulted. I did call Dr. Back who agree d to see the patient as soon as possible for surgical consult. General Diff Dx:Considerations: Include: Abrasion, Contusion, Fracture Shoulder Diff Dx:Consideration: Unlikely: AC separation, Adhesive capsulitis, Arthritis, Bicipital tendonitis, Calcific tendonitis, Cervical disc disease, Contusion, Dislocation, Fracture-humerus, Fracture-scapula, Fracture-clavicle, GB disease, Hematoma, Impingement syndrome, Myocardial infarction, Neurovascular injury, Open fracture-humerus, Open fracture-scapula, Open fracture-clavicle, Rotator cuff injury, SC dislocatoin, Sprain, Subacromial bursitis, Other Elbow Diff Dx:Considerations: Unlikely: Abrasion, Arthritis, Contustion, DJD, Fracture-humerus, Fracture-radial head, Fracture-radius, Fracture-ulna, Gout, Hematoma, Laceration, Neurovascular injury, Olecranon bursitis, Open fracture, Osteomyelitis, Radial head subluxation, Rheumatoid arthritis, Septic, Sprain, Ulcer, Other Wrist Diff Dx:Considerations: Include: Arthritis, Gout Hand Diff Dx:Considerations: Include: Septic, Tenosynovitis Finger Diff Dx:Considerations: Include: Abrasion, Cellulitis Departure Disposition: 09 ADMITTED INPATIENT Admitted to Inpatient Unit: to hospitalist Admission Level of Care: Med/Surg Impression: Primary Impression: Infected finger Additional Impression: Infectious tenosynovitis Condition: Fair Additional Instructions: Patient will be admitted for further eval and consult and IV antibiotics. IV Zosyn was ordered. Hospitalist was consulted. I did call Dr. Back who agreed to see the patient as soon as possible for surgical consult. Referrals: NO PRIMARY CARE PROVIDER (PCP) Signature Scribe Signature: No scribe Attestation: No scribe CONNOR AGUAYO PAC Jun 26, 2025 18:25
[2025-06-26] MEDS: piperacillin/tazo 4.5gm/100ml 100 ML IV STA (18:36)
--- NOTE | 2025-06-26 18:51 | ELECTROCARDIOGRAPH REPORT ---
[facility] Test Date: 2025-06-26 Test Time: 18:46:47 Pat Name: MARTI DEL CASTILLO Department: [facility]- Patient ID: [facility]-[id number] Room: [place] [id number] Gender: F [employer] Permit Agent: : [id number] Requested By: CONNOR AGUAYO Order Number: [id number] Reading MD: Dr. CATERINA Mota Measurements Intervals [place] Rate: 101 P: 64 NE: 131 QRS: 81 QRSD: 96 T: 68 QT: 337 QTc: 437 Interpretive Statements Sinus tachycardia Electronically Signed On 06-27-2025 17:08:[address] CATERINA Mota Please click the below link to view image of tracing.
[2025-06-26 19:28] LABS: MEAN PLATELET VOLUME 6.3 FL (7.4-10.4); RED CELL DISTRIBUTION WIDTH 13.8 % (11.5-14.5)
[2025-06-26] MEDS ORDERED: ALBUTEROL (19:36)
[2025-06-26] MEDS ORDERED: QUET300T20 PO (19:36)
[2025-06-26] MEDS ORDERED: BUPR1FIL20 SL (19:36)
[2025-06-26 19:39] LABS: CREATININE 0.65 MG/DL (0.40-0.90); TOTAL CARBON DIOXIDE 27.6 MMOL/L (24-32); eCRCL 124 ML/MIN; eGFR > 90 ML/MIN
[2025-06-26] MEDS ORDERED: GABA-1405 PO (19:39)
[2025-06-26] MEDS ORDERED: METO-395 PO (19:40)
[2025-06-26] MEDS ORDERED: BICT1TAB PO (19:40)
[2025-06-26] MEDS ORDERED: ondansetron/PF 4mg/2ml inj IV PRN (22:05)
[2025-06-26] MEDS ORDERED: HYDROcodone/acetaminophen 10/325mg tab PO PRN (22:05)
[2025-06-26] MEDS ORDERED: potassium Cl 20 mEq SR tablet PO PRN ×2 (22:05)
[2025-06-26] MEDS ORDERED: magnesium Cl slow-release 64mg tablet PO PRN (22:05)
[2025-06-26] MEDS ORDERED: magnesium sulf-water 2g/50mL 50 ML IV PRN (22:05)
[2025-06-26] MEDS ORDERED: HYDROcodone/acetaminophen 5mg/325mg tablet PO PRN (22:05)
[2025-06-26] MEDS ORDERED: magnesium sulf-water 4G/100mL 100 ML IV PRN (22:05)
[2025-06-26] MEDS ORDERED: potassium Cl 40MEQ/1/2NS 520ml 520 ML IV PRN (22:05)
[2025-06-26] MEDS ORDERED: mag hydrox/Alum hydrox/simeth 30ml oral suspension PO PRN (22:05)
[2025-06-26 22:31] LABS: PRO BRAIN NATRIURETIC PEPTIDE 203 PG/ML (0-125)
[2025-06-26] MEDS: PERFLUTREN PROTEIN-A MICROSPHR (Optison) 0.22 MG/ML 3ML VIAL IV ONE (22:38)
--- NOTE | 2025-06-26 22:41 | HISTORY AND PHYSICAL-Residence ---
History & Physical Providers to CC Resident Creating Document: AYLIN MAIER CONSTANTINE ~ History of Present Illness Primary Medical Doctor: Tamar Meier [facility] Reason for Admit\\Complaint: RIGHT THUMB CELLULITIS, TENOSYNOVITIS History of Present Illness 35-year-old female with a history of HIV, hypertension, AFib, COPD presented to the ED with chief complaints of worsening right thumb swelling for the last one week. States that she fell off the bed while she was playing with her boyfriend and she ended up falling on the floor, she might have "punctured her finger". She had a puncture wound on the finger a week ago, associated with pain, swelling and erythema. She was here in the ED two days ago and was given antibiotics. She has taken antibiotics, with no improvement in symptoms hence she decided to come back to the ED. Denies associated symptoms like fever, chills, nausea, vomiting, diarrhea or constipation. No aggravating or relieving factors. Smokes around four cigarettes a day. Drinks occasionally. Uses meth occasionally. Denies IV drug abuse. She has a history of AFib and sinus tachycardia taking metoprolol at home. She was supposed to see public works technician Dr. Petit but missed her appointment. No other concerns or complaints at this time. Allergies: Coded Allergies: Sulfa (Sulfonamide Antibiotics) (Verified Allergy, Intermediate, LEG PAIN, 06/22/25) metoclopramide (Unverified Allergy, Unknown, 06/22/25) prochlorperazine edisylate (Verified Allergy, Unknown, 06/22/25) prochlorperazine maleate (Verified Allergy, Unknown, 06/22/25) Home Medications Home Medications Active Reported Biktarvy 50-200-25 mg Tablet (Bictegrav/Emtricit/Tenofov Ala) 50 Mg-200 Mg-25 Mg Tablet 1 Tab PO DAILY Metoprolol Succinate 25 Mg Tab.sr.24h 1 Tab PO DAILY Gabapentin 600 Mg Tablet 1 Tab PO Q6H 30 Days Quetiapine Fumarate 300 Mg Tablet 1 Tab PO HS Buprenorphine-Nalox 8-2Mg Film (Buprenorphine HCl/Naloxone HCl) 8 Mg-2 Mg Film 1 Strip SL TID PRN [Albuterol] Gabapentin 600 Mg Tablet 1 Tab PO QID Hydroxyzine HCl 50 Mg Tablet 1 Tab PO QID PRN Clonazepam 0.5 Mg Tablet 1 Tab PO BID PRN Escitalopram Oxalate 20 Mg Tablet 1 Tab PO DAILY Past Medical History Past Medical History AFib Hypertension COPD HIV Past Surgical History Surgical History Comment Hysterectomy 2016 Bladder sling surgery Family History Family History: FH: heart disease Past Social History Alcohol Use: Abuse Drug Use: Methamphetamine, Cocaine, Heroin, Other Lives with: Family Lives In: Homeless ROS ROS Reviewed in full. All negative except for pertinent positive HPI. Constitutional: Denies: chills, fever, weakness Eyes: Denies: pain, blurred vision ENT: Denies: ear pain, nose pain, throat pain, mouth pain Respiratory: Denies: cough, shortness of breath Cardiovascular: Denies: chest pain, palpitations Gastrointestinal: Denies: abdominal pain, nausea, vomiting Genitourinary: Denies: burning, dysuria Neurological: Denies: headache, dizziness Musculoskeletal: Denies: pain, swelling Integumentary: Denies: rash, lesions Allergic/Immunologic: Denies: hives, itching Hematologic/Lymphatic: Denies: no symptoms reported Psychiatric: Denies: depression, anxiety Exam Vitals: Vital Signs Date Time Temp Pulse Resp B/P (MAP) Pulse Ox O2 Delivery O2 Flow Rate FiO2 06/26/25 21:53 97 16 120/70 (87) 99 06/26/25 17:14 98.2 0 General: General: Awake and Alert, no acute distress. HEENT: Conjunctiva pink, Sclera clear, Mucus Membranes moist. Neck: Supple without masses and tenderness. Resp: Unlabored. Equal breath sounds bilaterally. Heart: Regular rhythm, normal S1 and S2, no rub, murmur or gallop. Abdomen: Soft and non tender no organomegaly. Normal bowel sounds x4 quadrant normoactive. No guarding or rigidity. Extremities: Right thumb erythema, edema and restricted motion. Pustules noted on the right thumb. Unable to flex the thumb. GENERAL FREIGHT AGENT: No gross motor or sensory abnormalities. Skin: Warm and Dry. Diagnostic Data Last Recorded Lab Results: 06/26/25191506/26/251915 Advance Care Planning Advanced Care plannin - 30 Minutes (I spent total of 15-30 minutes reviewing various resuscitative measures with the patient. Patient decided to be full code.) Additional Plan 35-year-old female with a history of HIV, hypertension, AFib, COPD presented to the ED with chief complaints of worsening right thumb swelling for the last one week. Right thumb cellulitis, failed outpatient antibiotic treatment Possible tenosynovitis WBCs 12, follow up with procalcitonin lactic acid Was given IV Zosyn in the ED Started IV vancomycin, continue Zosyn. Broad-spectrum IV antibiotic considering her current HIV status and on ART. Follow up with blood cultures, wound cultures, UA U tox, CD4 count, ESR, CRP Continue fluids NS at 100 mL/hour Ordered CT of the upper extremity, follow up with results Wound care consulted ED provider had contacted Orthopedics Dr. Back, appreciate recommendations She is on ART with Biktarvy, recommend consulting ID in a.m. regarding continuation versus holding ART at this time. Hypertension currently normotensive, cont home metoprolol xl 25 mg AFib , currently in sinus CHADVASC 1, not on anticoagulation, F/w echo. Continue home dose metoprolol xl 25 mg HIV on anti retroviral therapy, Biktarvy. She is on ART with Biktarvy, recommend consulting ID in a.m. regarding continuation versus holding ART at this time. F/w CD4 count Chronic Normocytic normochronic anemia, no signs of active bleeding. [facility], f/w iron studies. COPD not in exacerbation, breathing treatments prn Substance use disorder Awaiting med rec Code Status: Full code DVT prophylaxis: Lovenox Analgesia/sedation: Suboxone Line/tube: PIV GI prophylaxis: None Nutrition: Heart healthy Prognosis: Guarded Disposition: Continue medical management. Patient seen, examined and discussed with the attending physician Dr. Shantell Maier MD. IM Resident PGY-3 Patient assessed and agree with the assessment and plan as above. I agree with the assessment and plan as above. Tory Washburn MD Date of Service: Jun 26, 2025 Billing Provider: TORY WASHBURN MD, ELIZABETH, RES Jun 26, 2025 22:41 TORY WASHBURN MD Jun 27, 2025 18:02
[2025-06-26 22:44] LABS: URINE HCG NEGATIVE (NEG)
[2025-06-26 22:47] LABS: LEUKOCYTE ESTERASE ,URINE NEGATIVE (Neg); NITRITES, URINE NEGATIVE (Neg); OCCULT BLOOD,URINE NEGATIVE (Neg)
[2025-06-26 22:53] LABS: UA COLLECTION TYPE NON-SPECIFIED
[2025-06-26] MEDS ORDERED: non-formulary drug (Hydroxyzine HCl 1 TAB) PO PRN (22:55)
[2025-06-26] MEDS ORDERED: buprenorphine/naloxone 8MG-2MG SUBlingual film SL PRN (22:55)
[2025-06-26 22:58] LABS: URINE AMPHETAMINE SCREEN POSITIVE (Neg); URINE BARBITUATE SCREEN NEGATIVE (Neg); URINE BENZODIAZEPINES SCREEN NEGATIVE (Neg); URINE CANNABINOID SCREEN POSITIVE (Neg); URINE COCAINE SCREEN NEGATIVE (Neg); URINE METHADONE SCREEN NEGATIVE (Neg); URINE OPIATE SCREEN NEGATIVE (Neg); URINE PHENCYCLIDINE SCREEN NEGATIVE (Neg)
[2025-06-26] MEDS: normal saline 1000ml 1,000 ML IV SCH (23:11)
[2025-06-26] MEDS: metoprolol succinate 25mg (24-HOUR) SR. Tablet PO SCH (23:12)
[2025-06-26] MEDS: buprenorphine/naloxone 8MG-2MG SUBlingual film SL PRN (23:17)
[2025-06-27] VITALS (26 sets, daily range): BP systolic 99–129; BP diastolic 58–91; PULSE 67–91; RESP 12–17; TEMP 97.4–98.3; O2SAT 95–100
[2025-06-27] MEDS: normal saline 1000ml 1,000 ML IV ONE (00:40)
[2025-06-27] MEDS: vancomycin/NS 1 GM ADD-VANTAGE 250 ML IV SCH (00:40)
[2025-06-27] MEDS ORDERED: nicotine prolacrilex 4mg gum BC PRN (02:30)
[2025-06-27] MEDS: piperacillin/tazo 3.375gm/50ml 50 ML IV SCH (02:51)
--- NOTE | 2025-06-27 04:14 | RADIOLOGY REPORT ---
CLINICAL INDICATION: right thumb cellulitis CT OF RIGHT HAND TECHNIQUE: Noncontrast CT of the side Extremity was performed. Sagittal and coronal reformatted images are provided. COMPARISON: DI HAND, COMPLETE (3VW MIN) on DOS: 06/26/25 CT Dose: CTDI volume is 3.0 mGy. Dose-length product is 82.9 mGy*cm FINDINGS: No fracture or dislocation. Alignment is maintained. No periosteal reaction or erosion. There is soft tissue swelling in the dorsal hand. No fluid collection. No soft tissue gas. IMPRESSION: 1. No acute fracture or dislocation. 2. No periosteal reaction or focal osseous lesion. 3. Soft tissue swelling of the dorsal hand. No soft tissue gas. No fluid collection. All CT scans at this medical facility are performed using dose modulation techniques as appropriate to a performed exam including the following: Automated exposure control was utilized; adjustment of the MA and/or KV according to patient size; and use of iterative reconstruction technique.
[2025-06-27 06:04] LABS: MEAN PLATELET VOLUME 6.3 FL (7.4-10.4); RED CELL DISTRIBUTION WIDTH 13.7 % (11.5-14.5)
[2025-06-27 06:10] LABS: INR 0.9 INR
[2025-06-27 06:35] LABS: CHOL/HDL RATIO 2.6 (0.00-4.99); CREATININE 0.71 MG/DL (0.40-0.90); LDL CHOLESTEROL 47 MG/DL (50-100); PHOSPHORUS 3.9 MG/DL (2.3-4.5); TOTAL CARBON DIOXIDE 27.6 MMOL/L (24-32); eCRCL 113 ML/MIN; eGFR > 90 ML/MIN
--- NOTE | 2025-06-27 06:38 | CONSULTATION REPORT ---
History of Present Illness Providers to CC ~ Reason for Admit\Admit Dx: RIGHT THUMB CELLULITIS, TENOSYNOVITIS Refering MD: Shira History of Present Illness The patient is a 35-year-old woman who presented with a about a week history of unexplained right thumb pain and swelling. She was seen in the ER a week ago and started on Keflex but fail to improve. It has gotten worse over time. She denies IV drug use or bug bites. She thinks she may have scratched it week ago. Her pain is mostly in the thumb area but beginning to spread through her hand as she is getting quite a with the swelling. She finds it difficult to make a fist. No prior history of this type of injury Allergies: Coded Allergies: Sulfa (Sulfonamide Antibiotics) (Verified Allergy, Intermediate, LEG PAIN, 06/22/25) metoclopramide (Unverified Allergy, Unknown, 06/22/25) prochlorperazine edisylate (Verified Allergy, Unknown, 06/22/25) prochlorperazine maleate (Verified Allergy, Unknown, 06/22/25) Home Medications Home Medications Active Reported Biktarvy 50-200-25 mg Tablet (Bictegrav/Emtricit/Tenofov Ala) 50 Mg-200 Mg-25 Mg Tablet 1 Tab PO DAILY Metoprolol Succinate 25 Mg Tab.sr.24h 1 Tab PO DAILY Gabapentin 600 Mg Tablet 1 Tab PO Q6H 30 Days Quetiapine Fumarate 300 Mg Tablet 1 Tab PO HS Buprenorphine-Nalox 8-2Mg Film (Buprenorphine HCl/Naloxone HCl) 8 Mg-2 Mg Film 1 Strip SL TID PRN [Albuterol] Gabapentin 600 Mg Tablet 1 Tab PO QID Hydroxyzine HCl 50 Mg Tablet 1 Tab PO QID PRN Clonazepam 0.5 Mg Tablet 1 Tab PO BID PRN Escitalopram Oxalate 20 Mg Tablet 1 Tab PO DAILY Past Family History Family History: FH: heart disease Physical Exam Last Vital Signs Recorded: Temperature: 98.1, Source: Oral, Heart Rate: 91, Respiratory Rate: 14, BP: 103/58, Pulse Oximetry: 97, Weight: 74.800 General Appearance: alert Extremities The right thumb is markedly swollen. They are areas of abscess in the subcutaneous tissues. Extends over to the wrist crease itself. The other fingers do not appear to be involved. Most of the abscess areas of the dorsum of the thumb. Results Diagram Lab Result Diagram: 06/27/25 0533 06/26/251915 Assessment/Plan Problems/Diagnosis: (1) Infected finger Additional Plan The this requires surgical debridement. We will schedule her for operative I&D to be done WILY today. I explained to her the risks and benefits of this type of procedure. The main risks of this type of procedure is recurrent infection and loss of soft tissue coverage. She agreed to proceed. ANGIE SALGADO Jr., MD Jun 27, 2025 06:38
[2025-06-27 06:40] LABS: % IRON SATURATION 13 % (11-46)
[2025-06-27] MEDS: K and/or MAG REPLACEMENT MC SCH (08:00)
[2025-06-27] MEDS: nicotine 7mg patch - 24hr TD SCH (08:00)
[2025-06-27] MEDS: ESCITALOPRAM 10 mg tablet 10 MG TABLET PO SCH (08:00)
[2025-06-27] MEDS: enoxaparin 40mg/0.4ml syringe SUBCUT SCH (09:42)
[2025-06-27] MEDS ORDERED: emtricitabine/tenofovir 200mg/300mg tablet PO SCH (10:45)
[2025-06-27] MEDS ORDERED: raltegravir 400mg tablet PO SCH (10:48)
--- NOTE | 2025-06-27 11:23 | PROGRESS NOTE- Residence ---
Progress Note - Resident Providers to CC Resident Creating Document: FROY MURRELLSAMEER GRIMM CC: ZOHRA CANALES MD ~ Antibiotic Timeout Antibiotic Ordered?: Yes Subjective Patient was seen and examined today at bedside.She reports no acute complaint overnight.She mentioned that the swelling is getting worse and is now involving her whole right hand.She is now unable to move her thumb without experiencing pain.She denies any associated fever,chills,palpitations,vomiting,diarrhea or constipation.Patient took keflex and doxycycline for 2 days but she did not notice any improvement in her swelling .Patient reports SOB, which is not new.She takes inhaler p.r.n at home for COPD.Patient sees Dr Moreira for her HIV and is on Bictarvy. She does not remember her last CD4 count but did mention that her last viral load was undetectable.She takes metoprolol and clonidine for her hypertension but she has stopped taking clonidine because of the side effects. Her AFib was diagnosed by her PCP and her camera systems engineer is Dr Petit, but she missed her appointments with him. She reports she no longer uses heroin, but she continues to use meth. She also in treatment for opioid addiction. Objective Vital Signs Date Time Temp Pulse Resp B/P (MAP) Pulse Ox O2 Delivery O2 Flow Rate FiO2 06/27/25 10:46 71 16 100 06/27/25 09:59 98.3 112/73 (86) Room Air 06/27/25 00:59 0 Result Diagram: 06/27/25 0533 06/27/25 0533 General: Awake and Alert, no acute distress. HEENT: Conjunctiva pink, Sclera clear, Mucus Membranes moist. Neck: Supple without masses and tenderness. Resp: Unlabored. Equal breath sounds bilaterally.B/L expiratory Wheezing Heart: Regular rhythm, normal S1 and S2, no rub, murmur or gallop. Abdomen: Soft and non tender no organomegaly. Normal bowel sounds x4 quadrant normoactive. No guarding or rigidity. Extremities: Right thumb erythema, edema and restricted range of motion. Pustules noted on the right thumb. Unable to flex the thumb. Less severe edema extending to hand and distal forearm SALES SUPPORT REP: No gross motor or sensory abnormalities. Skin: Warm and Dry. As above Coagulation Studies Laboratory Tests Test 06/27/25 05:33 Prothrombin Time 9.7 SECONDS (9.0-12.0) INR International Normalized Ratio 0.9 INR Coagulation Comments Assessment Assessment 35-year-old female with a history of HIV, hypertension, AFib, COPD presented to the ED with chief complaints of worsening right thumb swelling for the last one week. Admitted for evaluation and treatment of right thumb cellulitis and possible tenosynovitis. Plan Plan Sepsis 2/2 Right thumb cellulitis, failed outpatient antibiotic treatment Possible tenosynovitis WBCs is 9.2 down from 12.1, procalcitonin is normal,lactic acid is down from 2.5 yesterday to 1 today Preliminary blood cultures are negative U tox is positive for fenatnyl,amphetamine and cannabis wound cultures, CD4 count are pending CT of the upper extremity shows. No acute fracture or dislocation. No periosteal reaction or focal osseous lesion. Soft tissue swelling of the dorsal hand. No soft tissue gas. No fluid collection. Continue IV Zosyn and Vancomycin. Day 2. Broad-spectrum IV antibiotic considered because of her current HIV status and on ART. Continue IV NS at 100 mL/hour Wound care consulted Orthopedics was consulted and Dr. Back recommended surgical wound debridement. Appreciate recommendations She is on ART with Biktarvy, ID recommended continuing ART and current antibiotics as above COPD not in exacerbation Uses albuterol and Symbicort at home Duonebs q4 prn Hypertension Currently normotensive, continued with home metoprolol xl 25 mg Patient stopped taking home clonidine because of the side effects AFib , currently in NSR CHADVASC 2, not on anticoagulation Echo done, pending report Continued with home dose metoprolol xl 25 mg daily HIV on anti retroviral therapy, Biktarvy. She is on ART with Biktarvy,ID recommended continue. F/w CD4 count Continue ID recommendations Chronic Normocytic normochronic anemia Anemia of chronic disease No signs of active bleeding Continue monitoring H&H Transfuse if Hb <7 Substance use disorder U tox positie for fentanyl, amphetamine and cannabis Substance abuse navigator consult was placed Code Status: Full code DVT prophylaxis: Lovenox Analgesia/sedation: Suboxone Line/tube: PIV GI prophylaxis: None Nutrition: Heart healthy Prognosis: Guarded Disposition: Continue medical management. Pending surgical wound debridement today Sameer Murrell MD Internal Medicine Resident PGY-2 Date of Service: Jun 27, 2025 Billing Provider: ZOHRA CANALES MD Common Visit Codes: [id number] INP/OBS CARE(HIGH) FROY MURRELLSAMEER LUIS Jun 27, 2025 11:23 ZOHRA CANALES MD Jul 06, 2025 13:49
[2025-06-27] MEDS ORDERED: BUPIVAcaine 2.5mg/ml inj 50ml vial (contains preservative) ONE (11:37)
[2025-06-27] MEDS ORDERED: midazolam 1 mg/ML 2ml injection ONE (12:24)
[2025-06-27] MEDS ORDERED: fentaNYL/PF 50MCG/1 ML 2ML syringe ONE (12:24)
[2025-06-27] MEDS: BUPIVAcaine/PF 2.5 mg/ml (0.25%) 30ml vial IJ ONE (12:31)
[2025-06-27] MEDS ORDERED: propofol inj 20 ML IV ONE (12:39)
--- NOTE | 2025-06-27 12:51 | OPERATIVE REPORT ---
Operative Report Providers to ~ Date of Procedure: Jun 27, 2025 Pre-Operative Diagnosis: Right thumb abscess Post-Operative Diagnosis SAME as PRE-Op Procedure Performed Incision and drainage of right thumb abscess Surgeon: Dominick Back MD Tie Hacker None Anesthesiologist: Jl Jay Type of Anesthesia: General Findings: Abscess involving the thumb extensor tendon from the tip to the proximal me tacarpal region Complications None Prosthetics\Implants used: None Estimated Blood Loss: None Specimen Removed: Deep wound culture Description of Procedure: The patient is a 35-year-old woman who presented with a one-week history of pain and swelling. She had been on antibiotics for a week without improvement. Surgery today is indicated to eliminate infection and prevent spread. Risks and benefits were discussed with the patient some of which include but are not limited to infection, bleeding, returned to surgery for recurrent infection stiffness and tendon loss. She agreed to proceed. After the anesthesia was initiated the arm was prepped and draped in usual manner with a tourniquet on the forearm. Incision was made dorsally on the thumb and there was a large area of pus along the thumb extensor tendon extending from the initial opening just proximal to the nail plate back to the proximal metacarpal. Wide opening was made and thorough irrigation was done with the antibiotic saline as well as with plain saline. Curette was used to remove any devitalized tissue. Deep wound culture that was obtained before irrigation was done. Loose closure was then effected with a two 0 Prolene suture and Marcaine was injected proximal to the incision for postoperative pain control. Sterile dressing was then applied and the tourniquet was released. The patient was awakened and taken to the recovery room in stable condition and tolerated the procedure well. DOMINICK BACK Jr., MD Jun 27, 2025 12:51
--- NOTE | 2025-06-27 12:52 | CONSULTATION REPORT - RESIDENT ---
Consult Providers to CC Resident Creating Document: RAMÍREZ TELLEZ RES History of Present Illness Reason for Admit\Complaint: Right thumb cellulitis History of Present Illness 35-year-old female patient presented to the hospital with chief complaint of worsening right thumb swelling during the last week. The patient states that this swelling started after she was playing with her boyfriend, does not recall how she got a puncture wound at the level of the thumb. Patient states that she has been treated with antibiotics couple of days ago which did not help. In her past medical history the patient mentioned HIV diagnosed during the last year, currently following Dr. Moreira. The patient states that she has been compliant with her medication based on Biktarvy. Patient currently denies any pain despite significant swelling or fever. We were consulted for antibiotic therapy and HIV management. Allergies: Coded Allergies: Sulfa (Sulfonamide Antibiotics) (Verified Allergy, Intermediate, LEG PAIN, 06/22/25) metoclopramide (Unverified Allergy, Unknown, 06/22/25) prochlorperazine edisylate (Verified Allergy, Unknown, 06/22/25) prochlorperazine maleate (Verified Allergy, Unknown, 06/22/25) Home Medications Home Medications Active Reported Biktarvy 50-200-25 mg Tablet (Bictegrav/Emtricit/Tenofov Ala) 50 Mg-200 Mg-25 Mg Tablet 1 Tab PO DAILY Metoprolol Succinate 25 Mg Tab.sr.24h 1 Tab PO DAILY Gabapentin 600 Mg Tablet 1 Tab PO Q6H 30 Days Quetiapine Fumarate 300 Mg Tablet 1 Tab PO HS Buprenorphine-Nalox 8-2Mg Film (Buprenorphine HCl/Naloxone HCl) 8 Mg-2 Mg Film 1 Strip SL TID PRN [Albuterol] Gabapentin 600 Mg Tablet 1 Tab PO QID Hydroxyzine HCl 50 Mg Tablet 1 Tab PO QID PRN Clonazepam 0.5 Mg Tablet 1 Tab PO BID PRN Escitalopram Oxalate 20 Mg Tablet 1 Tab PO DAILY Past Medical History Past Medical History AFib Hypertension COPD HIV Past Surgical History Surgical History Comment Hysterectomy 2016 Bladder sling surgery Family History Family History: FH: heart disease Exam Vitals: Vital Signs Date Time Temp Pulse Resp B/P (MAP) Pulse Ox O2 Delivery O2 Flow Rate FiO2 06/27/25 11:55 98.2 71 15 99 06/27/25 09:59 112/73 (86) Room Air 06/27/25 00:59 0 Physical exam: General: Awake, alert, oriented. No acute distress. Well-developed, hydrated and well-built nourished. No anemia, Jaundice or clubbing. HEENT: Conjunctive are pink, sclerae clear, no icterus, pupil is equal in both sides, reactive to light, no ear discharge, no pharyngeal erythema or an edema. Neck: Supple, no adenopathy, thyromegaly. Trachea is midline. No JVD. Chest: Respiratory: Vesicular breath sounds. No ronchi, crepitus or wheezing. Resonance is normal upon percussion of all lung reis. Cardiovascular: S1-S2 regular sinus rhythm and, regular rate, no gallops, no rubs, no murmurs Abdomen: No visible distention, Bowel sounds present on auscultation, on palpation: soft, nontender, no guarding, no rigidity. Extremities: Presence of right thumb erythema, edema, associated tenderness and restricted movement due to pain. Presence of puncture wound at the tip of the right thumb, No obvious deformities, no pitting edema bilaterally, capillary refill intact, peripheral pulsations are intact on both sides. Neurologic: Mental status: alert and conscious, oriented to place, person and time, preserved memory, normal speech. Cranial nerves I-XII: Normal. Motor system: Preserved power, coordination, no evidenced involuntary movements, strength 5/5 in four extremities. Sensory system: Preserved temperature, pain and vibration sensation. Skin: Warm and dry. Diagnostic Data Last Recorded Lab Results: 06/27/25 0533 06/27/25 0533 Diagnostic Data: Laboratory Tests Test 06/27/25 05:33 Prothrombin Time 9.7 SECONDS (9.0-12.0) INR International Normalized Ratio 0.9 INR Coagulation Comments Additional Plan Assessment and plan: 35-year-old female patient past medical history of HIV presented to the hospital with chief complaint of right thumb swelling. Right thumb cellulitis, tenosynovitis: The patient presented to the hospital with chief complaint of right thumb swelling, found with right thumb cellulitis. Patient is following Dr. Moreira for HIV, as per patient has been compliant with Biktarvy. Pending CD4 and viral load. Noticed fentanyl in toxicology. Regarding immunosuppression we will continue broad-spectrum coverage which includes anaerobes as well as MRSA coverage. We will follow cultures for reducing spectrum of antibiotics. The patient will undergo I&D today by orthopedic surgeon. Recommendations: We will start Truvada 200/300 mg daily and isentress 400 mg b.i.d. for continuing management of HIV. Continue Zosyn and vancomycin. Other comorbidities: Hypertension, AFib, normocytic normochromic anemia. Appropriately managed by primary team. Resident MD attestation: Patient was seen, examined and discussed with the attending MD, Dr. Chanel. Ramírez Ceron Internal Medicine Resident [facility] Date of Service: Jun 27, 2025 Billing Provider: CONNOR CHANEL MD Addendum Agree with above note. Patient seen and examined with Dr. Ceron. She does have significant infection of the right hand, dominantly involving the thumb at the dorsal aspect. I believe she is going to the operating room today for drainage/debridement. She is most likely dealing with a Gram-positive infection, but she is immunosuppressed with a history of drug abuse. She states that she is compliant with anti-retroviral therapy and we will continue for now. RAMÍREZ TELLEZ, RES Jun 27, 2025 12:52 CONNOR CHANEL MD Jun 27, 2025 17:18
[2025-06-27] MEDS: ketorolac trometh 15mg/ml vial 15 MG/ML ML IV PRN (17:15)
--- NOTE | 2025-06-27 17:26 | CARDIOLOGY REPORT ---
APPROVED REPORT EXAM: Comprehensive 2D, Doppler, and color-flow Echocardiogram. 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 3.38 cm IVC 22.89 mm FS (%) 28.4 % SV 70.3 ml CO 4.9 L/min M-Mode Dimensions MV EPSS 0.4 (<0.5cm) Aortic Valve AoV Peak Sanju. 146.2 cm/s AoV VTI 31.1 cm AO Peak GR. 8.6 mmHg AO Mean GR. 5 mmHg LVOT VTI 26.75 cm LVOT Peak Sanju. 117.1 cm/s LENNY(VTI)/BSA 3.35 cm2/m2 LENNY (VTI) 3.35 cm2 AV DI 0.86 % Mitral Valve MV E Velocity 85.4 cm/s MV Peak Gr. 4 mmHg MV DECEL TIME 236 ms MV A Velocity 56.7 cm/s MV PHT 72 ms E/A Ratio 1.5 MVA (PHT) 3.06 cm2 MV VMax 97.5 cm/s TDI Medial E' P. V 12.79 cm/s E/Medial E' 6.7 Tricuspid Valve TR P. Velocity 275 cm/s RAP ESTIMATE 10 mmHg TR Peak Gr. 30 mmHg RVSP 40 mmHg Pulmonary Vein S1 Velocity 55.3 cm/s D2 Velocity 38.8 cm/s PVa Velocity 16.1 cm/s PVa Duration 64 msec LEFT VENTRICLE Normal LV size and wall thickness. Overall systolic function is normal. Overall LVEF is 55-60%. RIGHT VENTRICLE RV appears mildly dilated with normal contractility. RVSP is estimated at 40 mmHG. ATRIA The left atrium size is normal. AORTIC VALVE Trileaflet AV appears sclerotic without stenosis. No insufficiency. MITRAL VALVE MV is thickened with mild annular thickening and no stenosis. Trace mitral regurgitation. TRICUSPID VALVE The tricuspid valve is normal in structure. Mild tricuspid regurgitation. PULMONIC VALVE The pulmonary valve is normal in structure. Trace pulmonic insufficiency. GREAT VESSELS The aortic root is normal in size. The ascending aorta is normal in size. IVC is dilated and collapses greater than 50% with inspiration. PERICARDIUM There is no pericardial effusion. Other Information Study Quality: Adequate Conclusion Overall LVEF is 55-60%. Normal LV size and wall thickness. Overall systolic function is normal. RV appears mildly dilated with normal contractility. RVSP is estimated at 40 mmHG. Trileaflet AV appears sclerotic without stenosis. No insufficiency. Trace mitral regurgitation. Mild tricuspid regurgitation. The pulmonary valve is normal in structure. There is no pericardial effusion.
[2025-06-27] MEDS: raltegravir 400mg tablet PO SCH (19:01)
[2025-06-27] MEDS: VANCOMYCIN LEVEL IV ONE (23:40)
[2025-06-28 02:30] VITALS: BP 105/61; PULSE 74; RESP 14; TEMP 97.4; O2SAT 100
[2025-06-28 06:17] VITALS: BP 114/67; PULSE 75; RESP 14; TEMP 97.2; O2SAT 97
[2025-06-28 06:40] LABS: MEAN PLATELET VOLUME 6.5 FL (7.4-10.4); RED CELL DISTRIBUTION WIDTH 13.5 % (11.5-14.5)
[2025-06-28 06:52] LABS: CREATININE 0.60 MG/DL (0.40-0.90); PHOSPHORUS 4.2 MG/DL (2.3-4.5); TOTAL CARBON DIOXIDE 26.9 MMOL/L (24-32); eCRCL 134 ML/MIN; eGFR > 90 ML/MIN
--- NOTE | 2025-06-28 07:19 | PROGRESS NOTE ---
Progress Note Ortho Ortho Post Op Day #: 1 Follow Up ROS ROS No new complaints Exam Exam: Alert and Oreinted x4, Wound clean and dry, Distal neurovasc intact Problem/Assessment/Plan Assessment\Plan: Anticipate disch to home Problems/Diagnosis: (1) Infected finger Results/Orders Result Diagram: 06/28/25 0557 06/28/25 0557 ANGIE SALGADO Jr., MD Jun 28, 2025 07:19
[2025-06-28] MEDS: emtricitabine/tenofovir 200mg/300mg tablet PO SCH (07:26)
[2025-06-28 10:00] VITALS: BP 116/69; PULSE 76; RESP 16; TEMP 97.3; O2SAT 99
[2025-06-28] MEDS ORDERED: AMOX-580 PO (10:54)
[2025-06-28] MEDS ORDERED: LACT1CAP26 PO (10:54)
[2025-06-28] MEDS ORDERED: DOXY-243 PO (10:54)
--- NOTE | 2025-06-28 11:08 | DISCHARGE SUMMARY-Residence ---
Discharge Summary Providers to CC Resident Creating Document: FROY MURRELLFARHAD SIRISHA CC: ZOHRA CANALES MD ~ Discharge Summary Admission Diagnosis: Right thumb abscess Hospital Course DATE OF ADMISSION: 06/26/2025 DATE OF DISCHARGE: 06/28/2025 Discharge Diagnosis\\Comment: Sepsis 2/2 Right thumb cellulitis, failed outpatient antibiotic treatment, improving Tenosynovitis, improving COPD not in exacerbation Hypertension AFib , currently in NSR HIV on anti retroviral therapy, Biktarvy. Chronic Normocytic normochronic anemia Anemia of chronic disease Substance use disorder (amphetamines, opioids, cannabis) Operations\\Procedures: Right thumb surgical debridement Consultants: Dr Shields Orthopedics Dr Chanel ID Complications: none Condition on DC: Stable New Medications: Amox Tr/Potassium Clavulanate 875/125 MG (Augmentin 875/125 MG) 875 Mg-125 Mg Tablet 1 TAB PO BID for 14 Days, #28 TAB Doxycycline Hyclate (Doxycycline Hyclate) 100 Mg Tablet.dr 100 MG PO BID for 14 Days, #28 TAB Lactobacillus Rhamnosus (Culturelle) 10 Billion Cell Capsule 1 CAP PO DAILY for 30 Days, #30 CAP 0 Refills Continued Medications: [Albuterol] () Bictegrav/Emtricit/Tenofov Ala (Biktarvy 50-200-25 mg Tablet) 50 Mg-200 Mg-25 Mg Tablet 1 TAB PO DAILY Buprenorphine HCl/Naloxone HCl (Buprenorphine-Nalox 8-2Mg Film) 8 Mg-2 Mg Film 1 STRIP SL TID PRN for for anxiety/agitation Clonazepam (Clonazepam) 0.5 Mg Tablet 1 TAB PO BID PRN for anxiety Escitalopram Oxalate (Escitalopram Oxalate) 20 Mg Tablet 1 TAB PO DAILY Gabapentin (Gabapentin) 600 Mg Tablet 1 TAB PO QID Gabapentin (Gabapentin) 600 Mg Tablet 1 TAB PO Q6H for 30 Days, #90 TAB 0 Refills Hydroxyzine HCl (Hydroxyzine HCl) 50 Mg Tablet 1 TAB PO QID PRN for anxiety Metoprolol Succinate (Metoprolol Succinate) 25 Mg Tab.sr.24h 1 TAB PO DAILY Quetiapine Fumarate (Quetiapine Fumarate) 300 Mg Tablet 1 TAB PO HS Discharge Summary: Patient was admitted with the following HPI by Dr Haritha Stephenson: 35-year-old female with a history of HIV, hypertension, AFib, COPD presented to the ED with chief complaints of worsening right thumb swelling for the last one week. States that she fell off the bed while she was playing with her boyfriend and she ended up falling on the floor, she might have "punctured her finger". She had a puncture wound on the finger a week ago, associated with pain, swelling and erythema. She was here in the ED two days ago and was given antibiotics. She has taken antibiotics, with no improvement in symptoms hence she decided to come back to the ED. Denies associated symptoms like fever, chills, nausea, vomiting, diarrhea or constipation. No aggravating or relieving factors. Smokes around four cigarettes a day. Drinks occasionally. Uses meth occasionally. Denies IV drug abuse. She has a history of AFib and sinus tachycardia taking metoprolol at home. She was supposed to see seed cleaning manager Dr. Petit but missed her appointment. No other concerns or complaints at this time. Hospital Course Patient was admitted with diagnosis of right thumb cellulitis and tenosynovitis. She was started on broad spectrum IV antibiotics, Zosyn and Vancomycin as per ID recommendations. She underwent surgical debridement yesterday by Dr Back, which she tolerated well. She is stable and reports that pain and swelling has significantly reduced. She denies any fever, chills,nausea or vomiting. She is ready to discharge on Oral Doxycycline and Augmentin. ID started Truvada 200/300 mg daily and isentress 400 mg b.i.d. for continuing management of HIV during hospital stay, but she will continue home medication Biktarvy. Her Urine Toxicology was positive for Fentanyl,amphetamines and cannabis,she got Drug abus e navigator consult and given resources .She will be followed up by Dr Back and Outpatient wound Care. Imaging Echo: Overall LVEF is 55-60%.Normal LV size and wall thickness. Overall systolic function is normal.RV appears mildly dilated with normal contractility. RVSP is estimated at 40 mmHG.Trileaflet AV appears sclerotic without stenosis. No insufficiency.Trace mitral regurgitation.Mild tricuspid regurgitation.The pulmonary valve is normal in structure.There is no pericardial effusion. CT Scan Upper Extremity: No acute fracture or dislocation. No periosteal reaction or focal osseous lesion. Soft tissue swelling of the dorsal hand. No soft tissue gas. No fluid collection XRAY Hand:No radiographic evidence of an acute osseous abnormality. There is no acute fracture, osseous malalignment, or aggressive focal osseous lesion. Question diffuse soft tissue swelling Laboratory Tests: Test 06/26/25 19:16 06/26/25 22:28 06/26/25 22:34 06/26/25 22:39 White Blood Count 12.1 X10'3 Red Blood Count 3.64 X10'6 Hemoglobin 10.9 g/dl Hematocrit 32.6 % Mean Corpuscular Volume 89.5 FL Mean Corpuscular Hemoglobin 29.8 PG Mean Corpuscular Hemoglobin Concent 33.4 g/dL Red Cell Distribution Width 13.8 % Platelet Count 454 X10'3 Mean Platelet Volume 6.3 FL Neutrophils (%) (Auto) 67.0 % Lymphocytes (%) (Auto) 26.0 % Monocytes (%) (Auto) 4.8 % Eosinophils (%) (Auto) 1.6 % Basophils (%) (Auto) 0.6 % Neutrophils # (Auto) 8.1 X10'3 Lymphocytes # (Auto) 3.1 X10'3 Monocytes # (Auto) 0.6 X10'3 Eosinophils # (Auto) 0.2 X10'3 Basophils # (Auto) 0.1 X10'3 CBC Comment Sodium Level 141 MMOL/L Potassium Level 4.0 MMOL/L Chloride Level 105 MMOL/L Carbon Dioxide Level 27.6 MMOL/L Anion Gap 8 Blood Urea Nitrogen 10 MG/DL Creatinine 0.65 MG/DL Estimated GFR/1.73 m2 > 90 ML/MIN BUN/Creatinine Ratio 15.4 Glucose Level 90 MG/DL Hemoglobin A1c 5.5 % Lactic Acid Level 1.3 MMOL/L 2.5 MMOL/L Calcium Level 8.6 MG/DL C-Reactive Protein 7.53 MG/DL Pro-B-Type Natriuretic Peptide 203 PG/ML Albumin 2.9 G/DL Procalcitonin < 0.05 NG/ML Chemistry Comments Urine Specimen Description Non-specified Urine Color Yellow Urine Clarity Clear Urine pH 6.0 Urine Specific [place] 1.010 Urine Protein Negative mg/dl Urine Glucose (UA) Negative mg/dl Urine Ketones Negative mg/dl Urine Occult Blood Negative Urine Nitrite Negative Urine Bilirubin Negative Urine Urobilinogen 0.2 E.U/dL Urine Leukocyte Esterase Negative Urine Culture Indicated Not ind Volume Urine Centrifuged 10 ml Urine HCG, Qualitative Negative Urine Comment Urine Opiates Screen Negative Urine Methadone Screen Negative Urine Fentanyl Screen Positive Urine Barbiturates Screen Negative Urine Phencyclidine Screen Negative Urine Amphetamines Screen Positive Urine Benzodiazepines Screen Negative Urine Cocaine Screen Negative Urine Cannabinoids Screen Positive Drug Screen Comment Erythrocyte Sedimentation Rate 83 MM/HR Test 06/27/25 00:07 06/27/25 05:33 06/27/25 11:43 06/27/25 23:32 Lactic Acid Level 1.1 MMOL/L 1.0 MMOL/L White Blood Count 9.2 X10'3 Red Blood Count 3.55 X10'6 Hemoglobin 10.7 g/dl Hematocrit 31.7 % Mean Corpuscular Volume 89.4 FL Mean Corpuscular Hemoglobin 30.2 PG Mean Corpuscular Hemoglobin Concent 33.7 g/dL Red Cell Distribution Width 13.7 % Platelet Count 422 X10'3 Mean Platelet Volume 6.3 FL Neutrophils (%) (Auto) 58.0 % Lymphocytes (%) (Auto) 33.5 % Monocytes (%) (Auto) 5.9 % Eosinophils (%) (Auto) 2.1 % Basophils (%) (Auto) 0.5 % Neutrophils # (Auto) 5.3 X10'3 Lymphocytes # (Auto) 3.1 X10'3 Monocytes # (Auto) 0.5 X10'3 Eosinophils # (Auto) 0.2 X10'3 Basophils # (Auto) 0.0 X10'3 CBC Comment Prothrombin Time 9.7 SECONDS INR International Normalized Ratio 0.9 INR Coagulation Comments Sodium Level 142 MMOL/L Potassium Level 4.0 MMOL/L Chloride Level 107 MMOL/L Carbon Dioxide Level 27.6 MMOL/L Anion Gap 7 Blood Urea Nitrogen 10 MG/DL Creatinine 0.71 MG/DL Estimated GFR/1.73 m2 > 90 ML/MIN BUN/Creatinine Ratio 14.1 Glucose Level 116 MG/DL Calcium Level 8.2 MG/DL Phosphorus Level 3.9 MG/DL Magnesium Level 1.7 MG/DL Iron Level 27 UG/DL Total Iron Binding Capacity 207 UG/DL Percent Iron Saturation 13 % Total Bilirubin 0.1 MG/DL Aspartate Amino Transf (AST/SGOT) 15 U/L Alanine Aminotransferase (ALT/SGPT) 12 U/L Alkaline Phosphatase 87 IU/L Total Protein 6.7 G/DL Albumin 2.3 G/DL Globulin 4.4 G/DL Albumin/Globulin Ratio 0.5 Triglycerides Level 57 MG/DL Cholesterol Level 87 MG/DL LDL Cholesterol 47 MG/DL HDL Cholesterol 33 MG/DL Cholesterol/HDL Ratio 2.6 Chemistry Comments Glucometer 99 mg/dl Vancomycin Level Trough 14.9 ug/mL Test 06/28/25 05:57 White Blood Count 8.5 X10'3 Red Blood Count 3.80 X10'6 Hemoglobin 11.4 g/dl Hematocrit 34.0 % Mean Corpuscular Volume 89.4 FL Mean Corpuscular Hemoglobin 30.1 PG Mean Corpuscular Hemoglobin Concent 33.6 g/dL Red Cell Distribution Width 13.5 % Platelet Count 461 X10'3 Mean Platelet Volume 6.5 FL Neutrophils (%) (Auto) 59.9 % Lymphocytes (%) (Auto) 31.0 % Monocytes (%) (Auto) 5.6 % Eosinophils (%) (Auto) 2.6 % Basophils (%) (Auto) 0.9 % Neutrophils # (Auto) 5.1 X10'3 Lymphocytes # (Auto) 2.6 X10'3 Monocytes # (Auto) 0.5 X10'3 Eosinophils # (Auto) 0.2 X10'3 Basophils # (Auto) 0.1 X10'3 CBC Comment Sodium Level 139 MMOL/L Potassium Level 4.1 MMOL/L Chloride Level 106 MMOL/L Carbon Dioxide Level 26.9 MMOL/L Anion Gap 6 Blood Urea Nitrogen 8 MG/DL Creatinine 0.60 MG/DL Estimated GFR/1.73 m2 > 90 ML/MIN BUN/Creatinine Ratio 13.3 Glucose Level 98 MG/DL Calcium Level 8.3 MG/DL Phosphorus Level 4.2 MG/DL Magnesium Level 1.7 MG/DL Total Bilirubin 0.1 MG/DL Aspartate Amino Transf (AST/SGOT) 15 U/L Alanine Aminotransferase (ALT/SGPT) 13 U/L Alkaline Phosphatase 77 IU/L Total Protein 7.0 G/DL Albumin 2.3 G/DL Globulin 4.7 G/DL Albumin/Globulin Ratio 0.5 Procalcitonin 0.05 NG/ML Chemistry Comments Discharge Vital Signs: Date Time Temp Pulse Resp B/P (MAP) Pulse Ox O2 Delivery O2 Flow Rate FiO2 06/28/25 08:00 Room Air 06/28/25 06:17 97.2 75 14 114/67 (83) 97 06/27/25 12:50 8.0 Discharge Physical Exam: General: Awake and Alert, no acute distress. HEENT: Conjunctiva pink, Sclera clear, Mucus Membranes moist. Neck: Supple without masses and tenderness. Resp: Unlabored. Equal breath sounds bilaterally.B/L expiratory Wheezing Heart: Regular rhythm, normal S1 and S2, no rub, murmur or gallop. Abdomen: Soft and non tender no organomegaly. Normal bowel sounds x4 quadrant normoactive. No guarding or rigidity. Extremities: Improved right thumb/hand erythema, edema. Right hand covered with clean dressing HEALTH CARE LIAISON: No gross motor or sensory abnormalities. Skin: Warm and Dry. As above Disposition: We prescribed a 2 week course of antibiotics for your hand infection. Please take as prescribed. Follow up with Dr Back (ortho). We will schedule an appointment with the wound care clinic for you. Wound care appointment is 07/03 at 12:30 Follow up with your PCP within one week of discharge. Follow up with your Infectious Disease specialist. It is strongly recommended that you stop the use of amphetamines. Please return to the ED if worsening hand swelling/pain, fever, chills, or any other concerning symptoms. *Problems/Diagnosis: (1) Infected finger Status: Acute (2) Polysubstance dependence including opioid type drug, episodic abuse Status: Acute (3) Infectious tenosynovitis Status: Acute Total Time Spent on D/C: > 30 Minutes Date of Service: Jun 28, 2025 Billing Provider: ZOHRA CANALES MD Common Visit Codes: 79693-LAW/OBS DISCH DAY <30MIN FARHAD DUNCAN Jun 28, 2025 10:25 ZOHRA CANALES MD Jul 06, 2025 13:54
--- NOTE | 2025-06-28 12:16 | PROGRESS NOTE- Residence ---
Progress Note - Resident Providers to CC Resident Creating Document: RAMÍREZ TELLEZ, RES ~ Antibiotic Timeout Antibiotic Ordered?: Yes Subjective The patient has been evaluated at bedside. The patient underwent I&D yesterday, currently denies any complaints. No overnight events. Objective Vital Signs Date Time Temp Pulse Resp B/P (MAP) Pulse Ox O2 Delivery O2 Flow Rate FiO2 06/28/25 10:00 97.3 76 16 116/69 (85) 99 Room Air 06/27/25 12:50 8.0 Physical exam: General: Awake, alert, oriented. No acute distress. Well-developed, hydrated and well-built nourished. No anemia, Jaundice or clubbing. HEENT: Conjunctive are pink, sclerae clear, no icterus, pupil is equal in both sides, reactive to light, no ear discharge, no pharyngeal erythema or an edema. Neck: Supple, no adenopathy, thyromegaly. Trachea is midline. No JVD. Chest: Respiratory: Vesicular breath sounds. No ronchi, crepitus or wheezing. Resonance is normal upon percussion of all lung reis. Cardiovascular: S1-S2 regular sinus rhythm and, regular rate, no gallops, no rubs, no murmurs Abdomen: No visible distention, Bowel sounds present on auscultation, on palpation: soft, nontender, no guarding, no rigidity. Extremities: Rectum covered with clean dressing, No obvious deformities, no pitting edema bilaterally, capillary refill intact, peripheral pulsations are intact on both sides. Neurologic: Mental status: alert and conscious, oriented to place, person and time, preserved memory, normal speech. Cranial nerves I-XII: Normal. Motor system: Preserved power, coordination, no evidenced involuntary movements, strength 5/5 in four extremities. Sensory system: Preserved temperature, pain and vibration sensation. Skin: Warm and dry. Result Diagram: 06/28/25 0557 06/28/25 0557 Coagulation Studies Laboratory Tests Test 06/27/25 05:33 Prothrombin Time 9.7 SECONDS (9.0-12.0) INR International Normalized Ratio 0.9 INR Coagulation Comments Assessment Assessment 35-year-old female patient past medical history of HIV presented to the hospital with chief complaint of right thumb swelling. Plan Plan Right thumb cellulitis, tenosynovitis: The patient presented to the hospital with chief complaint of right thumb swelling, found with right thumb cellulitis. Patient is following Dr. Moreira for HIV, as per patient has been compliant with Biktarvy. Pending CD4 and viral load. Noticed fentanyl in toxicology. Regarding immunosuppression we will include coverage with Augmentin and doxycycline, we are avoiding linezolid due to the home medication with the escitalopram which could interact causing serotonin syndrome. The patient underwent I&D yesterday. Recommendations: The patient can continue her Biktarvy at home. Augmentin 875/125 mg b.i.d. for two weeks. Doxycycline one tablet of 100 mg b.i.d. for two weeks. Recommendation to continue follow-up with Dr. Moreira as an outpatient for HIV management. Other comorbidities: Hypertension, AFib, normocytic normochromic anemia. Appropriately managed by primary team. Resident MD attestation: Patient was seen, examined and discussed with the attending MD, Dr. Chanel. Ramírez Ceron Internal Medicine Resident [facility] Date of Service: Jun 28, 2025 Billing Provider: CONNOR CHANEL MD Addendum Agree with above note. Patient seen and examined with Dr. Ceron. Home soon with 2 weeks Augmentin and Doxycycline. RAMÍREZ TELLEZ, RES Jun 28, 2025 12:16 CONNOR CHANEL MD Jun 28, 2025 20:54
[2025-06-28] MEDS ORDERED: VANCOmycin 1250MG/NS 250ml Bag 250 ML IV SCH (16:00)
[2025-06-28] MEDS ORDERED: JUVEN Smoothie Arginine/Glut./Ca2+Bmb (Juven 19.3pkt) 240ml cup PO SCH (17:30)
[2025-06-29 07:18] LABS: % CD 4 POS. LYMPH 45.5 % (30.8-58.5); % IMMATURE GRANULOCYTES 0 % (Not Estab.); ABSOLUTE CD 4 HELPER 1411 /uL (359-1519); BASO (ABSOLUTE) 0.0 x10E3/uL (0.0-0.2); BASOS 0 % (Not Estab.); EOS 2 % (Not Estab.); EOS (ABSOLUTE) 0.2 x10E3/uL (0.0-0.4); IMMATURE GRANULOCYTES(ABSOLUTE 0.0 x10E3/uL (0.0-0.1); LYMPHS 34 % (Not Estab.); LYMPHS (ABSOLUTE) 3.1 x10E3/uL (0.7-3.1); MCH 30.3 pg (26.6-33.0); MCHC 31.9 g/dL (31.5-35.7); MCV 95 fL (79-97); MONOCYTES 5 % (Not Estab.); MONOCYTES (ABSOLUTE) 0.5 x10E3/uL (0.1-0.9); NEUTROPHILS 59 % (Not Estab.); NEUTROPHILS (ABSOLUTE) 5.4 x10E3/uL (1.4-7.0); PLATELETS 415 x10E3/uL (150-450); RBC 3.37 x10E6/uL (3.77-5.28); RDW 12.7 % (11.7-15.4); WBC 9.2 x10E3/uL (3.4-10.8)
[2025-06-29] MEDS ORDERED: VANCOMYCIN LEVEL IV ONE (15:30)
== END 2025-06-28 12:50 | disposition home or self-care (01) | DRG 710 ==
LOC: ER 17:12 → ED HOLD 19:54 → ORTHO 4S 06-27 01:28
PROVIDERS: ADMIT Internal Medicine Pulmonary Disease; ATTEND Family Medicine
PROC: 0JBJ0ZZ Excision of Right Hand Subcutaneous Tissue and Fascia, Open Approach (ICD-10-PCS; principal; 2025-06-27 12:12)
DX: A41.9 Sepsis, unspecified organism (principal); D64.9 Anemia, unspecified; L03.011 Cellulitis of right finger; M65.141 Other infective (teno)synovitis, right hand; L02.511 Cutaneous abscess of right hand; J44.89 Other specified chronic obstructive pulmonary disease; F15.90 Other stimulant use, unspecified, uncomplicated; I48.91 Unspecified atrial fibrillation; J45.909 Unspecified asthma, uncomplicated; Z79.899 Other long term (current) drug therapy; Z88.2 Allergy status to sulfonamides; Z88.8 Allergy status to other drugs, medicaments and biological substances; Z90.710 Acquired absence of both cervix and uterus; Z98.891 History of uterine scar from previous surgery
CPT/HCPCS: 36415; 73130; 73200; 80048; 80053; 80061; 80202; 80305; 81003; 81025; 82948; 83036; 83540; 83550; 83605; 83735; 83880; 84100; 84145; 85025; 85610; 85651; 86140; 86361; 87040; 87070; 87075; 87077; 87081; 87102; 87186; 87535; 93005; 93306; 99285; A4618; A6222; A6449; A7000; G0378; J1650; J1885; J2250; J2543; J2704; J3010; J3373; J3490; J7030; J7050; J7120; Q0177